=== PATIENT | female | born 1940 | race Caucasian/White ===

== ENCOUNTER 2018-07-14 09:32 | Inpatient (IN) | payer MEDICARE, OTHER, SELFPAY ==
[2018-07-14] VITALS (15 sets, daily range): BP systolic 120–169; BP diastolic 53–71; PULSE 56–67; RESP 16–20; TEMP 36.4–36.9; O2SAT 93–98; BMI 29.8; BMI 28.5
--- NOTE | 2018-07-14 09:46 | EKG12_ITS ---
Test Reason : CP Blood Pressure : / mmHG Vent. Rate : 064 BPM Atrial Rate : 064 BPM P-R Int : 174 ms QRS Dur : 164 ms QT Int : 534 ms P-R-T Axes : 045 -52 087 degrees QTc Int : 550 ms Normal sinus rhythm Left axis deviation Left bundle branch block Abnormal ECG Confirmed by NGHIA KAUFMAN, CAITLYN ([id number]), development editor CHEPE DEMPSEY ([id number]) on 07/16/2018 2:58:48 PM Referred By: DAMARIS Confirmed By:CAITLYN AGRAWAL MD
--- NOTE | 2018-07-14 09:47 | RAD_ITS ---
STUDY: X-RAY CHEST REASON FOR EXAM: Female, 77 years old. Chest pain TECHNIQUE: Frontal and lateral views COMPARISON: February 02, 2012 FINDINGS: The lungs are clear and expanded. There is no demonstrated pleural abnormality. Normal size heart. Normal mediastinum and bandar. Normal visualized pulmonary arteries. Mildly calcified aortic arch and descending thoracic aorta. Mild degenerative changes of the visualized thoracic spine. Normal visualized ribs, clavicles, and shoulders. There is no demonstrated abnormality of the visualized soft tissue structures of the upper abdomen. RAD/Chest PA and Lateral IMPRESSION: Normal x-ray examination of the chest. Electronically Signed: Wilbert Vieyra DO at 12:38 EDT Tel [phone], Service support ,
--- NOTE | 2018-07-14 09:49 | ED.VISSUMM ---
- ER Visit Summary Date of Service: 07/14/18 Chief Complaint: Chest pain History of Present Illness: The patient is a 77 F left-sided chest burning at rest while reading a book. Patient states a.m. felt sweaty, burning sensation left chest into the left neck. States that short of breath and nauseated. Symptoms were subsiding however return, EMS was called. Status post aspirin 324 along with one nitroglycerin. Patient reports symptoms resolved afterwards. History of coronary stents over 10 years ago. States had a initial heart cath with [address] ramirez. States performed at [facility]. Patient reports had a additional cath reporting that 2 stents were occluded. History of atrial fibrillation on warfarin. Occasional dry cough. No fevers. States pain was worse with palpation. There is no injuries. Family history Brother [place] at age of 48 along with another brother at 64. Mother at 64 from [place]. Denies tobacco history. Denies diabetes history. No recent stress test. Unclear on date of her last heart cath. Physical Examination: General: Alert and oriented ?3, no acute distress HEENT: Normocephalic, atraumatic. Moist mucosa membranes Neck: supple, nontender. Cardiovascular: Regular rate and rhythm, no murmurs Respiratory: Normal breath sounds, symmetric, no distress Abdomen: Soft, nontender, nondistended Extremities: Nontender, no edema, pulses intact ?4 Neuro: no focal neurological deficits. Test Results: EKG sinus rate of 64, no ST changes. Left bundle branch block. Troponin 0 0.33. INR 2.3. Potassium 3.2. Creatinine 1.15. Hemoglobin 13.1. Chest x-ray negative. Emergency Department Course and Treatment: Patient symptom-free after nitroglycerin by EMS. Blood pressure stable was placed on Nitropaste. Cardiac workup currently negative. Potassium was 3.2. She given oral replacement. Patient EKG notes a left bundle branch block. She is currently symptom-free, there is noted old EKG for comparison. Patient reports not being told she had a left bundle branch in the past. Her EKG is performed from her cardiology office, today is Monday unable to obtain. INR is therapeutic 2.3. She remained symptom-free on reevaluation. ALEXIA scores of 4 heart score 5. Discussed with hospitalist Dr. Landis for admission. Treatment Plan: [] Disposition: Admission Impression: 1. Chest pain 2. Left bundle branch block 3. Hypokalemia This note was generated with [employer] dictation software. It may contain incorrect words, spelling, and punctuation that were not noted in review of the chart prior to signing ED Disposition - Plan for ED Patient: Disposition: Acute Care Hospital [facility] Chief Complaint: Chest Pain Diagnosis: Chest pain, Left bundle branch block, Hypokalemia Referrals: Freddy Jonas DO [STAFF PHYSICIAN] -
[2018-07-14 10:04] LABS: Absolute Lymphocyte Count 1.28 X10^3/ul (0.83-4.51); Absolute Neutrophil Count 4.6 X10^3/uL (2.0-7.7); Basophil# 0.03 X10^3/uL; Basophil% 0.4 % (0-1); Eosinophil# 0.44 X10^3/uL; Eosinophils% 6.4 % (0-5); Hematocrit 40.3 % (37-47); Hemoglobin 13.1 g/dl (12.0-15.0); Lymphocyte # 1.28 X10^3/ul (4.0); Lymphocyte % 18.6 % (19-41); Mean Corp Hgb Conc 32.5 g/gl (32-36); Mean Corpuscular Hgb 28.9 pg (27.0-32.0); Mean Platelet Vol. 11.6 fl (6.2-12.0); Monocyte# 0.49 X10^3/uL; Monocyte% 7.1 % (0-10); Neutrophil # 4.64 X10^3/uL (2.7-7.7); Neutrophil % 67.4 % (47-70); Platelet Count 206 K/mm3 (150-450); RBC Distribution Width SD 45.1 fl (35.1-43.9); Red Blood Count 4.53 M/mm3 (4.2-5.4); White Blood Count 6.9 K/mm3 (4.4-11.0)
[2018-07-14 10:11] LABS: POSITIVE COUNT NO; POSITIVE DIFFERENTIAL NO; POSITIVE MORPHOLOGY NO
[2018-07-14 10:20] LABS: International Normalized Ratio 2.3
[2018-07-14] MEDS: Nitroglycerin Oint 1 INCH PACKET TRANSDERM. (10:20)
[2018-07-14 10:21] LABS: Partial Thromboplast Time 40.1 Seconds (24.1-36.2)
[2018-07-14 10:22] LABS: Anion Gap 9 (5-15); BUN 17 mg/dL (7-18); BUN/Creat Ratio 14.8 RATIO (10-20); Calcium,Total 8.6 mg/dL (8.5-10.1); Chloride 103 mmol/L (98-107); Creatinine, Serum 1.15 mg/dL (0.55-1.02); EST Glomerular Filtration Rate 49 mL/min (>60); Est Glom Filt Rate - Afr Amer 59 mL/min (>60); Estimated Creatinine Clearance 35.94 ml/min; Glucose 223 mg/dL (74-106); Potassium 3.2 mmol/L (3.5-5.1); Sodium Level 140 mmol/L (136-145)
--- NOTE | 2018-07-14 10:59 | PCM.HP.STD ---
Problem List (1) Chest pain Status: Acute Qualifiers: Chest pain type: unspecified Qualified Code(s): R07.9 - Chest pain, unspecified (2) CAD (coronary artery disease) Status: Chronic Qualifiers: Coronary Disease-Associated Artery/Lesion type: unspecified vessel or lesion type [place] vs. transplanted heart: unspecified whether [place] or transplanted heart Associated angina: angina presence unspecified Qualified Code(s): I25.10 - Atherosclerotic heart disease of [place] coronary artery without angina pectoris (3) Depression Status: Chronic Qualifiers: Depression Type: unspecified Qualified Code(s): F32.9 - Major depressive disorder, single episode, unspecified (4) HLD (hyperlipidemia) Status: Chronic Qualifiers: Hyperlipidemia type: pure hypercholesterolemia Qualified Code(s): E78.00 - Pure hypercholesterolemia, unspecified; E78.0 - Pure hypercholesterolemia (5) Benign essential HTN Status: Chronic (6) PAF (paroxysmal atrial fibrillation) Status: Chronic History of Present Illness Date of Admission: 07/14/18 Chief Complaint: Chest pain The patient is a 77 y/o F w/ PMHx: Anxiety and Depression, HTN, HLD, CAD s/p PCI x 5, PAF following w/ Dr. Esparza previously obtaining her care at [facility] prior to its closure who presents to the [facility] ED on 07/14/18 with onset at ~ 8 am while reading left sided burning chest discomfort w/ radiation into her L shoulder only w/ associated nausea, diaphoresis and dyspnea which lasted < 15 minutes, rated at its worse 5/10 but she notes specifically not really pain, primarily the burning sensation, which resolved w/ EMS administration ASA and NG therapy. Upon ED presentation patient noted being chest pain free. In the ED work-up included T 97.9, heart rate 67, BP 143/68, respiratory rate 18, 96% on room air, CBC with W BC 6.9, heme globin 13.1, platelet 206 without market left shift, coags with INR 2.3, BMP with potassium 3.2, BUN/creatinine 17/1.15, glucose 223, troponin 0.033, EKG w/ SR w/ LBBB with no comparison, CXR with chronic changes. In the ED patient administered K-dur 40 mEq, nitrobid TD 1 inch. Past Medical History Past Medical History (Chronic Problems): Chronic Problems PAF (paroxysmal atrial fibrillation) (Chronic) HLD (hyperlipidemia) (Chronic) Depression (Chronic) CAD (coronary artery disease) (Chronic) Benign essential HTN (Chronic) Allergies No Known Allergies Allergy (Verified 07/14/18 09:48) Home Medications: Ambulatory Orders Medication Instructions Recorded Amiodarone HCl [Pacerone] 200 mg PO DAILY 07/14/18 Atorvastatin Calcium 40 mg PO QHS 07/14/18 Metoprol/Hydrochlorothiazide 1 tab PO DAILY 07/14/18 [Lopressor Hct 100-25 Tablet] Venlafaxine XR [Effexor Xr] 150 mg PO QODAY 07/14/18 Warfarin Sodium 1.5 mg PO MOTUWEFRSA 07/14/18 Warfarin Sodium 3 mg PO SUTH 07/14/18 Surgical History: appendectomy, cholecystectomy, hysterectomy, tonsillectomy Psychiatric History: Anxiety, Depression 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 Sibling History Items: - - Patient notes brother at age 48 with history of heart disease, coronary disease, status post [place], additional brother at age 56 with heart disease, coronary disease status post [place], younger sister with recent [place] in her 60s. Review of Systems Constitutional: Reports: Weakness, Fatigue. Denies: Chills, Fever, Weight Change HEENT: Denies: Head Aches, Sinus Congestion, Sinus Drainage Cardiovascular: Reports: Chest Pain. Denies: Chest Pressure, Chest Tightness, Heaviness, Light Headedness, Orthopnea, Palpitations, Syncope Respiratory: Reports: Shortness of Breath. Denies: Cough, Shortness of breath at rest, Sputum production Gastrointestinal: Reports: Nausea. Denies: Abdominal Pain, Vomiting Genitourinary: Denies: Dysuria Musculoskeletal: Denies: Joint Pain, Joint Tenderness Skin: Denies: Rash, Wounds Neurological: Denies: Numbness, Tingling, Focal weakness Psychiatric: Reports: Anxiety, Depression. Denies: Homicidal Ideations, Suicidal Ideations Hematologic/ Lymphatic: Reports: Easy Bruising, Easy Bleeding VTE Information - Inpt Only VTE Present on Admission: No VTE Mechan Device Prophylaxis: SCD's VTE Pharm Prophylaxis ordered?: No Reason prophylaxis not ordered:: Treatment Not Indicated - On coumadin with therapeutic INR. Patient Problems: Active and Suspected Problems Chest pain (Acute) Subjective: Seated upright in the bed, NAD, denies an recurrent chest burning sensation. Objective: Physical Examination: General: awake, alert, oriented x 3 and cooperative, seated upright in the PCU bed in no apparent distress. Skin: normal color, turgor, no icterus, cyanosis. HEENT: AT/NC, EOMI, PERRLA, MMM, no carotid bruits or JVD noted. Lungs: Mildly diminished BS BL bases, moderate effort, no rales, ronchi or wheezing. Heart: Regular rate and rhythm; no gallop, rub audible. Abdomen: soft, NTTP, ND, normal BS, no HSM. Extremities: no cyanosis, clubbing, or edema. Neurological: patient awake, alert, oriented x 3; cognitive function intact; pupils equally reactive to light and accomodation; cranial nerves II-XII grossly normal, moving all 4 extremities, no focal deficits, strength preserved. Psychiatric: affect appears normal, no acute evidence of depressive or anxiety feelings. - Physical Exam Vital Signs Temp Pulse Resp BP Pulse Ox 97.9 F 60 18 133/54 H 97 07/14/18 09:32 07/14/18 10:20 07/14/18 09:32 07/14/18 10:20 07/14/18 09:49 Oxygen Delivery Method Room Air Weight: 173 lb 11.588 oz Body Mass Index (BMI) 29.8 Laboratory Tests Past 24 Hrs 07/14/18 07/14/18 07/14/18 09:45 09:45 09:45 WBC 6.9 RBC 4.53 Hgb 13.1 Hct 40.3 MCV 89.0 MCH 28.9 MCHC 32.5 RDW 14.0 RDW Differential 45.1 H Plt Count 206 MPV 11.6 Immature Gran % (Auto) 0.100 Neut % (Auto) 67.4 Lymph % (Auto) 18.6 L [place] % (Auto) 7.1 Eos % (Auto) 6.4 H Baso % (Auto) 0.4 Absolute Neuts (auto) 4.6 Absolute Lymphs (auto) 1.28 Total Counted Not Reportable PT 25.0 H INR 2.3 APTT 40.1 H Sodium 140 Potassium 3.2 L Chloride 103 Carbon Dioxide 28.0 Anion Gap 9 BUN 17 Creatinine 1.15 H Estim Creat Clear Calc 35.94 Est GFR (MDRD) Af Amer 59 L Est GFR (MDRD) Non-Af 49 L BUN/Creatinine Ratio 14.8 Glucose 223 H Calcium 8.6 Troponin I 0.033 Assessment/Plan All Active Problems Chest pain (Acute) The patient is a 77 y/o F w/ PMHx: Anxiety and Depression, HTN, HLD, CAD s/p PCI, PAF following w/ Dr. Esparza previously obtaining her care at [facility] prior to its closure who presents to the [facility] ED on 07/14/18 with onset at ~ 8 am while reading left sided burning chest discomfort w/ radiation into her L shoulder only w/ associated nausea, diaphoresis and dyspnea which lasted < 15 minutes, resolved w/ EMS administration ASA and NG therapy. (1) Chest Pain: EKG in ED SR with LBBB without comparison, CXR w/ no acute findings, initial trop normal x1. Will admit to PCU, place on a monitored bed to assure no acute myocardial infarction with serial cardiac enzymes and EKGs. Patient is able to perform exercise and has LBBB with history of PCI with unclear wall motion abnormality at rest thus will proceed with AM nuclear stress test. ASA, NG, morphine. FLP in AM. Mag pending. If enzymes increase would cancel stress testing and request Cardiology evaluation. (2) CAD: s/p PCI history, following w/ Dr. Esparza, previously had care at [facility], maintain on coumadin w/ therapeutic INR, metoprolol, statin as noted. (3) Hypertension: Continue home regimen including metoprolol, hydrochlorothiazide, PRN hydralazine. (4) Hyperlipidemia: Continue home statin regimen. AM FLP. (5) Anxiety and depression: Continue home Effexor regimen. (6) PAF: Maintain on home amiodarone, metoprolol, coumadin w/ INR trending, appropriate upon presentation. (7) Hyperglycemia: Notable BS elevation on BMP, denies DM history, will obtain HgBA1c, nutrition education and teaching. (8) DVT Prophylaxis: SCDs, coumadin w/ INR trending. Code Visit OBSV E&M: 14089 Initial observation care L3
--- NOTE | 2018-07-14 11:00 | NURSING ---
DR ARSH FRASER
--- NOTE | 2018-07-14 11:08 | HP.PCM_ITS ---
Problem List (1) Chest pain Status: Acute Qualifiers: Chest pain type: unspecified Qualified Code(s): R07.9 - Chest pain, unspecified (2) CAD (coronary artery disease) Status: Chronic Qualifiers: Coronary Disease-Associated Artery/Lesion type: unspecified vessel or lesion type [place] vs. transplanted heart: unspecified whether [place] or transplanted heart Associated angina: angina presence unspecified Qualified Code(s): I25.10 - Atherosclerotic heart disease of [place] coronary artery without angina pectoris (3) Depression Status: Chronic Qualifiers: Depression Type: unspecified Qualified Code(s): F32.9 - Major depressive disorder, single episode, unspecified (4) HLD (hyperlipidemia) Status: Chronic Qualifiers: Hyperlipidemia type: pure hypercholesterolemia Qualified Code(s): E78.00 - Pure hypercholesterolemia, unspecified; E78.0 - Pure hypercholesterolemia (5) Benign essential HTN Status: Chronic (6) PAF (paroxysmal atrial fibrillation) Status: Chronic History of Present Illness Date of Admission: 07/14/18 Chief Complaint: Chest pain The patient is a 77 y/o F w/ PMHx: Anxiety and Depression, HTN, HLD, CAD s/p PCI x 5, PAF following w/ Dr. Esparza previously obtaining her care at [facility] prior to its closure who presents to the [facility] ED on 07/14/18 with onset at ~ 8 am while reading left sided burning chest discomfort w/ radiation into her L shoulder only w/ associated nausea, diaphoresis and dyspnea which lasted < 15 minutes, rated at its worse 5/10 but she notes specifically not really pain, primarily the burning sensation, which resolved w/ EMS administration ASA and NG therapy. Upon ED presentation patient noted being chest pain free. In the ED work-up included T 97.9, heart rate 67, BP 143/68, respiratory rate 18, 96% on room air, CBC with W BC 6.9, heme globin 13.1, platelet 206 without market left shift, coags with INR 2.3, BMP with potassium 3.2, BUN/creatinine 17/1.15, glucose 223, troponin 0.033, EKG w/ SR w/ LBBB with no comparison, CXR with chronic changes. In the ED patient administered K-dur 40 mEq, nitrobid TD 1 inch. Past Medical History Past Medical History (Chronic Problems): Chronic Problems PAF (paroxysmal atrial fibrillation) (Chronic) HLD (hyperlipidemia) (Chronic) Depression (Chronic) CAD (coronary artery disease) (Chronic) Benign essential HTN (Chronic) Allergies No Known Allergies Allergy (Verified 07/14/18 09:48) Home Medications: Ambulatory Orders Medication Instructions Recorded Amiodarone HCl [Pacerone] 200 mg PO DAILY 07/14/18 Atorvastatin Calcium 40 mg PO QHS 07/14/18 Metoprol/Hydrochlorothiazide 1 tab PO DAILY 07/14/18 [Lopressor Hct 100-25 Tablet] Venlafaxine XR [Effexor Xr] 150 mg PO QODAY 07/14/18 Warfarin Sodium 1.5 mg PO MOTUWEFRSA 07/14/18 Warfarin Sodium 3 mg PO SUTH 07/14/18 Surgical History: appendectomy, cholecystectomy, hysterectomy, tonsillectomy Psychiatric History: Anxiety, Depression 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 Sibling History Items: - - Patient notes brother at age 48 with history of heart disease, coronary disease, status post [place], additional brother at age 56 with heart disease, coronary disease status post [place], younger sister with recent [place] in her 60s. Review of Systems Constitutional: Reports: Weakness, Fatigue. Denies: Chills, Fever, Weight Change HEENT: Denies: Head Aches, Sinus Congestion, Sinus Drainage Cardiovascular: Reports: Chest Pain. Denies: Chest Pressure, Chest Tightness, Heaviness, Light Headedness, Orthopnea, Palpitations, Syncope Respiratory: Reports: Shortness of Breath. Denies: Cough, Shortness of breath at rest, Sputum production Gastrointestinal: Reports: Nausea. Denies: Abdominal Pain, Vomiting Genitourinary: Denies: Dysuria Musculoskeletal: Denies: Joint Pain, Joint Tenderness Skin: Denies: Rash, Wounds Neurological: Denies: Numbness, Tingling, Focal weakness Psychiatric: Reports: Anxiety, Depression. Denies: Homicidal Ideations, Suicidal Ideations Hematologic/ Lymphatic: Reports: Easy Bruising, Easy Bleeding VTE Information - Inpt Only VTE Present on Admission: No VTE Mechan Device Prophylaxis: SCD's VTE Pharm Prophylaxis ordered?: No Reason prophylaxis not ordered:: Treatment Not Indicated - On coumadin with therapeutic INR. Patient Problems: Active and Suspected Problems Chest pain (Acute) Subjective: Seated upright in the bed, NAD, denies an recurrent chest burning sensation. Objective: Physical Examination: General: awake, alert, oriented x 3 and cooperative, seated upright in the PCU bed in no apparent distress. Skin: normal color, turgor, no icterus, cyanosis. HEENT: AT/NC, EOMI, PERRLA, MMM, no carotid bruits or JVD noted. Lungs: Mildly diminished BS BL bases, moderate effort, no rales, ronchi or wheezing. Heart: Regular rate and rhythm; no gallop, rub audible. Abdomen: soft, NTTP, ND, normal BS, no HSM. Extremities: no cyanosis, clubbing, or edema. Neurological: patient awake, alert, oriented x 3; cognitive function intact; pupils equally reactive to light and accomodation; cranial nerves II-XII grossly normal, moving all 4 extremities, no focal deficits, strength preserved. Psychiatric: affect appears normal, no acute evidence of depressive or anxiety feelings. - Physical Exam Vital Signs Temp Pulse Resp BP Pulse Ox 97.9 F 60 18 133/54 H 97 07/14/18 09:32 07/14/18 10:20 07/14/18 09:32 07/14/18 10:20 07/14/18 09:49 Oxygen Delivery Method Room Air Weight: 173 lb 11.588 oz Body Mass Index (BMI) 29.8 Laboratory Tests Past 24 Hrs 07/14/18 07/14/18 07/14/18 09:45 09:45 09:45 WBC 6.9 RBC 4.53 Hgb 13.1 Hct 40.3 MCV 89.0 MCH 28.9 MCHC 32.5 RDW 14.0 RDW Differential 45.1 H Plt Count 206 MPV 11.6 Immature Gran % (Auto) 0.100 Neut % (Auto) 67.4 Lymph % (Auto) 18.6 L [place] % (Auto) 7.1 Eos % (Auto) 6.4 H Baso % (Auto) 0.4 Absolute Neuts (auto) 4.6 Absolute Lymphs (auto) 1.28 Total Counted Not Reportable PT 25.0 H INR 2.3 APTT 40.1 H Sodium 140 Potassium 3.2 L Chloride 103 Carbon Dioxide 28.0 Anion Gap 9 BUN 17 Creatinine 1.15 H Estim Creat Clear Calc 35.94 Est GFR (MDRD) Af Amer 59 L Est GFR (MDRD) Non-Af 49 L BUN/Creatinine Ratio 14.8 Glucose 223 H Calcium 8.6 Troponin I 0.033 Assessment/Plan All Active Problems Chest pain (Acute) The patient is a 77 y/o F w/ PMHx: Anxiety and Depression, HTN, HLD, CAD s/p PCI, PAF following w/ Dr. Esparza previously obtaining her care at [facility] prior to its closure who presents to the [facility] ED on 07/14/18 with onset at ~ 8 am while reading left sided burning chest discomfort w/ radiation into her L shoulder only w/ associated nausea, diaphoresis and dyspnea which lasted < 15 minutes, resolved w/ EMS administration ASA and NG therapy. (1) Chest Pain: EKG in ED SR with LBBB without comparison, CXR w/ no acute findings, initial trop normal x1. Will admit to PCU, place on a monitored bed to assure no acute myocardial infarction with serial cardiac enzymes and EKGs. Patient is able to perform exercise and has LBBB with history of PCI with unclear wall motion abnormality at rest thus will proceed with AM nuclear stress test. ASA, NG, morphine. FLP in AM. Mag pending. If enzymes increase would cancel stress testing and request Cardiology evaluation. (2) CAD: s/p PCI history, following w/ Dr. Esparza, previously had care at [facility], maintain on coumadin w/ therapeutic INR, metoprolol, statin as noted. (3) Hypertension: Continue home regimen including metoprolol, hydrochlorothiazide, PRN hydralazine. (4) Hyperlipidemia: Continue home statin regimen. AM FLP. (5) Anxiety and depression: Continue home Effexor regimen. (6) PAF: Maintain on home amiodarone, metoprolol, coumadin w/ INR trending, appropriate upon presentation. (7) Hyperglycemia: Notable BS elevation on BMP, denies DM history, will obtain HgBA1c, nutrition education and teaching. (8) DVT Prophylaxis: SCDs, coumadin w/ INR trending. Code Visit OBSV E&M: 56524 Initial observation care L3
--- NOTE | 2018-07-14 11:10 | NURSING ---
127 WHITE CP, LBBB, HYPOKALEMIA
--- NOTE | 2018-07-14 11:36 | EKG12_ITS ---
Test Reason : CP ADMISSION Blood Pressure : / mmHG Vent. Rate : 056 BPM Atrial Rate : 056 BPM P-R Int : 176 ms QRS Dur : 156 ms QT Int : 496 ms P-R-T Axes : 043 -52 104 degrees QTc Int : 478 ms Sinus bradycardia Left axis deviation Left bundle branch block Abnormal ECG Confirmed by NGHIA KAUFMAN, CAITLYN ([id number]), video editor CHEPE DEMPSEY ([id number]) on 07/18/2018 3:39:13 PM Referred By: DR CABAN Confirmed By:CAITLYN AGRAWAL MD
[2018-07-14 11:55] LABS: Magnesium 1.8 mg/dL (1.6-2.6)
[2018-07-14 12:53] LABS: Hemoglobin A1c 7.2 % (4.2-6.3)
--- NOTE | 2018-07-14 13:13 | ECHOCS_ITS ---
Reason For Study: CAD/ASHD Procedure This was a 2D Doppler, Color Flow transthoracic echocardiogram. Exam performed portable in patient room. Left Ventricle Normal LV size. Mild concentric left ventricular hypertrophy. Left ventricular systolic function is normal. The estimated ejection fraction is 55 %. No regional wall motion abnormalities noted. Right Ventricle Normal RV size. Normal systolic function. Atria Normal left atrium. Normal right atrium. Mitral Valve There is mild mitral annular calcification. Mild focal mitral valve calcification. Mild (1+) eccentric mitral valve insufficiency. Tricuspid Valve Normal tricuspid valve. Mild (1+) tricuspid valve insufficiency. Pulmonary artery systolic pressure is 35 mmHg. Aortic Valve Trisinus/trileaflet aortic valve. Mild (1+) eccentric aortic valve insufficiency. Pulmonic Valve Normal pulmonic valve. Great Vessels Normal aortic root. The pulmonary artery is normal size. Normal inferior vena cava. Pericardium/Pleural No pericardial effusion. Medication Definity0.3ml given slow IV push to enhance endocardial definition. MMode/2D Measurements & Calculations LVIDd: 4.7 cm IVSd: 1.2 cm Ao root diam: 3.1 cm LVIDs: 3.2 cm LVPWd: 1.2 cm RVDd: 3.6 cm FS: 31.3 % LAV(MOD-bp): 46.0 ml LVAd ap4: 21.0 cm2 SV(MOD-sp4): 35.5 ml LAV(MOD-bp) Indexed: 25.4 ml/m2 EDV(MOD-sp4): 51.5 ml LAV(MOD-sp2): 48.7 ml EDV(sp4-el): 52.9 ml LAV(MOD-sp4): 41.6 ml LVAs ap4: 10.6 cm2 ESV(MOD-sp4): 16.0 ml ESV(sp4-el): 16.0 ml EF(MOD-sp4): 68.9 % EF(sp4-el): 69.7 % SV(sp4-el): 36.8 ml LA A4 area: 16.6 cm2 RA A4 area: 10.0 cm2 Doppler Measurements & Calculations MV E max juancho: 84.8 cm/sec Lat Peak E' Juancho: 4.6 cm/sec Med Peak E' [place]o: 4.3 cm/sec MV A max juancho: 100.5 cm/sec E/E' lat: 18.2 E/E' med: 19.9 MV E/A: 0.84 Ao V2 max: 160.0 cm/sec AI max juancho: 403.3 cm/sec LV V1 max: 107.1 cm/sec Ao max P.2 mmHg AI max P.0 mmHg LV V1 max P.6 mmHg Ao V2 mean: 104.9 cm/sec AI dec slope: 165.1 cm/sec2 Ao mean P.0 mmHg AI P1/2t: 715.2 msec Ao V2 VTI: 39.9 cm PA V2 max: 86.5 cm/sec TR max juancho: 279.8 cm/sec TR max P.3 mmHg Interpretation Summary Normal LV size. Mild concentric left ventricular hypertrophy. Left ventricular systolic function is normal. The estimated ejection fraction is 55 %. Mild (1+) tricuspid valve insufficiency. Pulmonary artery systolic pressure is 35 mmHg. Mild (1+) eccentric aortic valve insufficiency. Mild focal mitral valve calcification. Ordering Physician: Angie Landis Referring Physician: Sanjeev Alexandra Performed By: Cailin Garcia, ELIZABETH, RVT
[2018-07-14] MEDS: Amiodarone 200 MG Tablet PO (14:55)
[2018-07-14] MEDS: Metoprolol Tartrate 100 MG Tablet PO (14:55)
[2018-07-14] MEDS: hydroCHLOROthiazide 25 MG Tablet PO (14:56)
--- NOTE | 2018-07-14 18:19 | PCM.CONS.C ---
Reason for Consult Date of Consultation: 07/14/18 Reason for Consultation: Chest pain. History of Present Illness: The patient is a 77 year old F with a previous history of hypertension, anxiety disorder, paroxysmal atrial fibrillation, and coronary artery disease status post previous stenting x5. She presented to the emergency room with chest burning with minimal radiation. She says that this was similar to the discomfort that she had had previously. She presented to the emergency room and was given aspirin and nitroglycerin prior to presentation with improvement in the chest discomfort. In the emergency room electrocardiogram done demonstrated left bundle branch block with no acute changes. Cardiac enzymes were minimally abnormal. Since being admitted her cardiac enzymes have risen further. She denies any chest pain or shortness breath or paroxysmal nocturnal dyspnea at this time. [] Past Medical History Allergies/Adverse Reactions: Allergies No Known Allergies Allergy (Verified 07/14/18 09:48) Home Medications: Ambulatory Orders Medication Instructions Recorded Amiodarone HCl [Pacerone] 200 mg PO DAILY 07/14/18 Atorvastatin Calcium 40 mg PO QHS 07/14/18 Metoprol/Hydrochlorothiazide 1 tab PO DAILY 07/14/18 [Lopressor Hct 100-25 Tablet] Venlafaxine XR [Effexor Xr] 150 mg PO QODAY 07/14/18 Warfarin Sodium 1.5 mg PO MOTUWEFRSA 07/14/18 Warfarin Sodium 3 mg PO SUTH 07/14/18 Past Medical History (Chronic Problems): Chronic Problems PAF (paroxysmal atrial fibrillation) (Chronic) HLD (hyperlipidemia) (Chronic) Depression (Chronic) CAD (coronary artery disease) (Chronic) Benign essential HTN (Chronic) Surgical History: appendectomy, cholecystectomy, hysterectomy, tonsillectomy Psychiatric History: Anxiety, Depression [employer] History: No pertinent [employer] history - *Family History Paternal History Items: No pertinent history Maternal History Items: - - Patient notes a maternal family history of heart disease with aneurysm, age 64. Sibling History Items: - - Patient notes brother at age 48 with history of heart disease, coronary disease, status post OR, additional brother at age 56 with heart disease, coronary disease status post OR, younger sister with recent OR in her 60s. Lives: Spouse/ Significant Other Smoking Status: Never smoker Tobacco Use: Non-smoker Alcohol: None Drugs: None Review of Systems - Review of Systems General: Denies: Fever, Night Sweats, Fatigue Cardiovascular: Reports: Chest Discomfort at Rest, Chest Discomfort with Exertion. Denies: Chest Discomfort, Shortness of Breath, Orthopnea, PND, Peripheral Edema, Palpitations, Lightheadedness, Dizziness, Near Syncope, Syncope Respiratory: Denies: Cough, Sputum Production, Hemoptysis Gastrointestinal: Denies: Hematemesis, Hematochezia, Melena Genitourinary: Denies: Dysuria, Hematuria Skin: Denies: Rash Subjectve: Pleasant lady in no apparent distress Objective: Vital Signs Temp Pulse Resp BP Pulse Ox 97.6 F L 60 16 169/70 H 97 07/14/18 14:43 07/14/18 15:48 07/14/18 14:43 07/14/18 14:55 07/14/18 14:43 Oxygen Flow Rate (L/min) 2 Oxygen Delivery Method Nasal Cannula Weight: 166 lb 3.657 oz Body Mass Index (BMI) 28.5 Intake and Output for Last 24 Hours 07/12/18 07/13/18 07/14/18 23:59 23:59 23:59 Intake Total 450 / 450 Balance 450 / 450 General: Awake, Alert, Oriented x 3 HEENT: PERRL, EOMI, Sclera Non Icteric Neck: Supple, Good ROM, No Lymph Node Enlargement Lungs: Clear to auscultation Cardiovascular: Regular Rhythm, Normal S1, Normal S2, No Murmurs, No Rubs, No Gallops Vascular: No Carotid Bruits, Normal Femoral Pulses, Normal Radial Pulses, Normal Dorsalis Pedal Pulse, Normal Posterior Tibial Pulses Abdomen: Bowel Sounds Present, Soft, Non Tender, No HSM, No Organomegaly Extremities: No Cyanosis, No Clubbing, No edema Neurological: No Focal Motor or Sensory Deficit 07/14/18 09:45: WBC 6.9, RBC 4.53, Hgb 13.1, Hct 40.3, MCV 89.0, MCH 28.9, MCHC 32.5, RDW 14.0, RDW Differential 45.1 H, Plt Count 206, MPV 11.6, Immature Gran % (Auto) 0.100, Neut % (Auto) 67.4, Lymph % (Auto) 18.6 L, [place] % (Auto) 7.1, Eos % (Auto) 6.4 H, Baso % (Auto) 0.4, Absolute Neuts (auto) 4.6, Total Counted Not Reportable 07/14/18 09:45: Sodium 140, Potassium 3.2 L, Chloride 103, Carbon Dioxide 28.0, Anion Gap 9, BUN 17, Creatinine 1.15 H, Est GFR (MDRD) Af Amer 59 L, Est GFR (MDRD) Non-Af 49 L, BUN/Creatinine Ratio 14.8, Glucose 223 H, Calcium 8.6, Troponin I 0.033 07/14/18 09:45: PT 25.0 H, INR 2.3, APTT 40.1 H 07/14/18 09:45: Magnesium 1.8 07/14/18 09:45: Hemoglobin A1c 7.2 H 07/14/18 12:20: Troponin I 0.127 H 07/14/18 15:41: Troponin I 0.172 H Rhythm: EKG: Normal sinus rhythm with a left bundle branch block Assessment/Plan 1. Chest pain in a patient with known coronary artery disease. She presents with chest discomfort with a history of known coronary artery disease and previous angioplasty and stenting. She has an electric cardiogram which demonstrates a left bundle branch block. My recommendation is to continue to cycle her cardiac enzymes. With her previous history it may be prudent to proceed directly to a cardiac catheterization rather than stress testing especially with a left bundle branch block. I will discuss this with her further. The meantime she should continue on the aspirin, high intensity statin, beta-itzel. Would hold anticoagulation for now. 2. Paroxysmal atrial fibrillation Patient is maintaining sinus rhythm with a left bundle branch block. In lieu of possible cardiac catheterization would hold anticoagulation in the meantime. Continue antiarrhythmic therapy with amiodarone. 3. Hypertension Patient appears to be well controlled with respect to the hypertension. Will continue same medications. 4. Hyperlipidemia Will recommend continuing high intensity statin. Thank you for allowing me to participate in the care of your patient. Please don't hesitate to call if any issues arise
--- NOTE | 2018-07-14 18:24 | CON.PCM_ITS ---
Reason for Consult Date of Consultation: 07/14/18 Reason for Consultation: Chest pain. History of Present Illness: The patient is a 77 year old F with a previous history of hypertension, anxiety disorder, paroxysmal atrial fibrillation, and coronary artery disease status post previous stenting x5. She presented to the emergency room with chest burning with minimal radiation. She says that this was similar to the discomfort that she had had previously. She presented to the emergency room and was given aspirin and nitroglycerin prior to presentation with improvement in the chest discomfort. In the emergency room electrocardiogram done demonstrated left bundle branch block with no acute changes. Cardiac enzymes were minimally abnormal. Since being admitted her cardiac enzymes have risen further. She denies any chest pain or shortness breath or paroxysmal nocturnal dyspnea at this time. [] Past Medical History Allergies/Adverse Reactions: Allergies No Known Allergies Allergy (Verified 07/14/18 09:48) Home Medications: Ambulatory Orders Medication Instructions Recorded Amiodarone HCl [Pacerone] 200 mg PO DAILY 07/14/18 Atorvastatin Calcium 40 mg PO QHS 07/14/18 Metoprol/Hydrochlorothiazide 1 tab PO DAILY 07/14/18 [Lopressor Hct 100-25 Tablet] Venlafaxine XR [Effexor Xr] 150 mg PO QODAY 07/14/18 Warfarin Sodium 1.5 mg PO MOTUWEFRSA 07/14/18 Warfarin Sodium 3 mg PO SUTH 07/14/18 Past Medical History (Chronic Problems): Chronic Problems PAF (paroxysmal atrial fibrillation) (Chronic) HLD (hyperlipidemia) (Chronic) Depression (Chronic) CAD (coronary artery disease) (Chronic) Benign essential HTN (Chronic) Surgical History: appendectomy, cholecystectomy, hysterectomy, tonsillectomy Psychiatric History: Anxiety, Depression [employer] History: No pertinent [employer] history - *Family History Paternal History Items: No pertinent history Maternal History Items: - - Patient notes a maternal family history of heart disease with aneurysm, age 64. Sibling History Items: - - Patient notes brother at age 48 with history of heart disease, coronary disease, status post MA, additional brother at age 56 with heart disease, coronary disease status post MA, younger sister with recent MA in her 60s. Lives: Spouse/ Significant Other Smoking Status: Never smoker Tobacco Use: Non-smoker Alcohol: None Drugs: None Review of Systems - Review of Systems General: Denies: Fever, Night Sweats, Fatigue Cardiovascular: Reports: Chest Discomfort at Rest, Chest Discomfort with Exertion. Denies: Chest Discomfort, Shortness of Breath, Orthopnea, PND, Peripheral Edema, Palpitations, Lightheadedness, Dizziness, Near Syncope, Syncope Respiratory: Denies: Cough, Sputum Production, Hemoptysis Gastrointestinal: Denies: Hematemesis, Hematochezia, Melena Genitourinary: Denies: Dysuria, Hematuria Skin: Denies: Rash Subjectve: Pleasant lady in no apparent distress Objective: Vital Signs Temp Pulse Resp BP Pulse Ox 97.6 F L 60 16 169/70 H 97 07/14/18 14:43 07/14/18 15:48 07/14/18 14:43 07/14/18 14:55 07/14/18 14:43 Oxygen Flow Rate (L/min) 2 Oxygen Delivery Method Nasal Cannula Weight: 166 lb 3.657 oz Body Mass Index (BMI) 28.5 Intake and Output for Last 24 Hours 07/12/18 07/13/18 07/14/18 23:59 23:59 23:59 Intake Total 450 / 450 Balance 450 / 450 General: Awake, Alert, Oriented x 3 HEENT: PERRL, EOMI, Sclera Non Icteric Neck: Supple, Good ROM, No Lymph Node Enlargement Lungs: Clear to auscultation Cardiovascular: Regular Rhythm, Normal S1, Normal S2, No Murmurs, No Rubs, No Gallops Vascular: No Carotid Bruits, Normal Femoral Pulses, Normal Radial Pulses, Normal Dorsalis Pedal Pulse, Normal Posterior Tibial Pulses Abdomen: Bowel Sounds Present, Soft, Non Tender, No HSM, No Organomegaly Extremities: No Cyanosis, No Clubbing, No edema Neurological: No Focal Motor or Sensory Deficit 07/14/18 09:45: WBC 6.9, RBC 4.53, Hgb 13.1, Hct 40.3, MCV 89.0, MCH 28.9, MCHC 32.5, RDW 14.0, RDW Differential 45.1 H, Plt Count 206, MPV 11.6, Immature Gran % (Auto) 0.100, Neut % (Auto) 67.4, Lymph % (Auto) 18.6 L, [place] % (Auto) 7.1, Eos % (Auto) 6.4 H, Baso % (Auto) 0.4, Absolute Neuts (auto) 4.6, Total Counted Not Reportable 07/14/18 09:45: Sodium 140, Potassium 3.2 L, Chloride 103, Carbon Dioxide 28.0, Anion Gap 9, BUN 17, Creatinine 1.15 H, Est GFR (MDRD) Af Amer 59 L, Est GFR (MDRD) Non-Af 49 L, BUN/Creatinine Ratio 14.8, Glucose 223 H, Calcium 8.6, Troponin I 0.033 07/14/18 09:45: PT 25.0 H, INR 2.3, APTT 40.1 H 07/14/18 09:45: Magnesium 1.8 07/14/18 09:45: Hemoglobin A1c 7.2 H 07/14/18 12:20: Troponin I 0.127 H 07/14/18 15:41: Troponin I 0.172 H Rhythm: EKG: Normal sinus rhythm with a left bundle branch block Assessment/Plan 1. Chest pain in a patient with known coronary artery disease. * She presents with chest discomfort with a history of known coronary artery disease and previous angioplasty and stenting. She has an electric cardiogram which demonstrates a left bundle branch block. * My recommendation is to continue to cycle her cardiac enzymes. With her previous history it may be prudent to proceed directly to a cardiac catheterization rather than stress testing especially with a left bundle branch block. I will discuss this with her further. * The meantime she should continue on the aspirin, high intensity statin, beta- itzel. * Would hold anticoagulation for now. * 2. Paroxysmal atrial fibrillation * Patient is maintaining sinus rhythm with a left bundle branch block. * In lieu of possible cardiac catheterization would hold anticoagulation in the meantime. * Continue antiarrhythmic therapy with amiodarone. * 3. Hypertension * Patient appears to be well controlled with respect to the hypertension. * Will continue same medications. * 4. Hyperlipidemia * Will recommend continuing high intensity statin. * * Thank you for allowing me to participate in the care of your patient. Please don't hesitate to call if any issues arise
[2018-07-14] MEDS: Atorvastatin Calcium 20 MG Tablet 40 MG PO (21:10)
[2018-07-14] MEDS: Acetaminophen 325 MG Tablet 650 MG PO (21:10)
[2018-07-15] VITALS (14 sets, daily range): BP systolic 130–149; BP diastolic 53–73; PULSE 53–61; RESP 14–18; TEMP 36.5–37.1; O2SAT 93–96
--- NOTE | 2018-07-15 05:55 | EKG12_ITS ---
Test Reason : AM Blood Pressure : / mmHG Vent. Rate : 057 BPM Atrial Rate : 057 BPM P-R Int : 186 ms QRS Dur : 160 ms QT Int : 614 ms P-R-T Axes : 056 -54 131 degrees QTc Int : 597 ms Sinus bradycardia Left axis deviation Left bundle branch block Abnormal ECG When compared with ECG of 14-JUL-2018 11:52, MANUAL COMPARISON REQUIRED, DATA IS UNCONFIRMED Confirmed by NGHIA KAUFMAN, CAITLYN ([id number]), telegraph editor CHEPE DEMPSEY ([id number]) on 07/18/2018 3:37:40 PM Referred By: ARSH Confirmed By:CAITLYN AGRAWAL MD
[2018-07-15 06:47] LABS: Hematocrit 40.1 % (37-47); Hemoglobin 13.1 g/dl (12.0-15.0); Mean Corp Hgb Conc 32.7 g/gl (32-36); Mean Corpuscular Hgb 29.2 pg (27.0-32.0); Mean Corpuscular Volume 89.3 fL (81-99); Mean Platelet Vol. 12.4 fl (6.2-12.0); Platelet Count 235 K/mm3 (150-450); RBC Distribution Width SD 45.3 fl (35.1-43.9); Red Blood Count 4.49 M/mm3 (4.2-5.4); White Blood Count 9.8 K/mm3 (4.4-11.0)
[2018-07-15 06:54] LABS: International Normalized Ratio 2.1; Prothrombin Time (Protime)PT. 23.9 SECONDS (11.7-14.9)
[2018-07-15 06:58] LABS: Scan Indicated on CBC? Y/N NO
[2018-07-15 07:07] LABS: ALB/GLOB Ratio 0.9 RATIO (0.9-2.4); AST(SGOT) 34 U/L (15-37); Alanine Aminotransfer ALT/SGPT 48 U/L (13-56); Albumin, Serum 3.3 g/dL (3.2-5.0); Alkaline Phosphatase 93 U/L (45-117); Anion Gap 9 (5-15); BUN 16 mg/dL (7-18); BUN/Creat Ratio 14.7 RATIO (10-20); Calcium,Total 8.5 mg/dL (8.5-10.1); Chloride 104 mmol/L (98-107); Cholesterol 167 mg/dL (200); Creatinine, Serum 1.09 mg/dL (0.55-1.02); EST Glomerular Filtration Rate 52 mL/min (>60); Est Glom Filt Rate - Afr Amer 63 mL/min (>60); Estimated Creatinine Clearance 37.92 ml/min; Globulin 3.5 g/dL (2.2-4.2); Glucose 127 mg/dL (74-106); High Density Lipoprotein 77 mg/dL; Potassium 3.6 mmol/L (3.5-5.1); Protein, Total 6.8 g/dL (6.4-8.2); Sodium Level 141 mmol/L (136-145); Triglycerides 208 mg/dL; Very Low Density Lipoprotein 42 mg/dL (5-40)
--- NOTE | 2018-07-15 08:27 | PN.CARD_ITS ---
Subjectve: Patient seen and evaluated. Appears to be doing well. No chest pain overnight. Objective: Vital Signs Temp Pulse Resp BP Pulse Ox 98.7 F 58 L 14 149/57 H 93 07/15/18 03:05 07/15/18 07:59 07/15/18 03:05 07/15/18 03:05 07/15/18 07:15 Oxygen Flow Rate (L/min) 2 Oxygen Delivery Method Room Air Weight: 166 lb 3.657 oz Body Mass Index (BMI) 28.5 Intake and Output for Last 24 Hours 07/13/18 07/14/18 07/15/18 23:59 23:59 23:59 Intake Total 550 / 550 Balance 550 / 550 General: Awake, Alert, Oriented x 3 HEENT: PERRL, EOMI, Sclera Non Icteric Neck: Supple, Good ROM, No Lymph Node Enlargement Lungs: Clear to auscultation Cardiovascular: Regular Rhythm, Normal S1, Normal S2, No Murmurs, No Rubs, No Gallops Vascular: No Carotid Bruits, Normal Femoral Pulses, Normal Radial Pulses, Normal Dorsalis Pedal Pulse, Normal Posterior Tibial Pulses Abdomen: Bowel Sounds Present, Soft, Non Tender, No HSM, No Organomegaly Extremities: No Cyanosis, No Clubbing, No edema Neurological: No Focal Motor or Sensory Deficit 07/14/18 09:45: WBC 6.9, RBC 4.53, Hgb 13.1, Hct 40.3, MCV 89.0, MCH 28.9, MCHC 32.5, RDW 14.0, RDW Differential 45.1 H, Plt Count 206, MPV 11.6, Immature Gran % (Auto) 0.100, Neut % (Auto) 67.4, Lymph % (Auto) 18.6 L, [place] % (Auto) 7.1, Eos % (Auto) 6.4 H, Baso % (Auto) 0.4, Absolute Neuts (auto) 4.6, Total Counted Not Reportable 07/14/18 09:45: Sodium 140, Potassium 3.2 L, Chloride 103, Carbon Dioxide 28.0, Anion Gap 9, BUN 17, Creatinine 1.15 H, Est GFR (MDRD) Af Amer 59 L, Est GFR (MDRD) Non-Af 49 L, BUN/Creatinine Ratio 14.8, Glucose 223 H, Calcium 8.6, Troponin I 0.033 07/14/18 09:45: PT 25.0 H, INR 2.3, APTT 40.1 H 07/14/18 09:45: Magnesium 1.8 07/14/18 09:45: Hemoglobin A1c 7.2 H 07/14/18 12:20: Troponin I 0.127 H 07/14/18 15:41: Troponin I 0.172 H 07/15/18 05:57: WBC 9.8, RBC 4.49, Hgb 13.1, Hct 40.1, MCV 89.3, MCH 29.2, MCHC 32.7, RDW 14.0, RDW Differential 45.3 H, Plt Count 235, MPV 12.4 H 07/15/18 05:57: Sodium 141, Potassium 3.6, Chloride 104, Carbon Dioxide 28.0, Anion Gap 9, BUN 16, Creatinine 1.09 H, Est GFR (MDRD) Af Amer 63, Est GFR (MDRD) Non-Af 52 L, BUN/Creatinine Ratio 14.7, Glucose 127 H, Calcium 8.5, Total Bilirubin 0.40, Triglycerides 208 H, Cholesterol 167, LDL Cholesterol 48, VLDL Cholesterol 42 H, HDL Cholesterol 77 07/15/18 05:57: PT 23.9 H, INR 2.1 Rhythm: EKG: ECHO: Stress Test: Cardiac Cath: PCI: CT Surgery: Holter monitor: EPS: PPM: CXR: Chest CT Scan: Medical Necessity - Tobacco Use Smoking Status: Never smoker Tobacco Use: Non-smoker Assessment/Plan 1. Chest pain in a patient with known coronary artery disease. * She presents with chest discomfort with a history of known coronary artery disease and previous angioplasty and stenting. She has an electric cardiogram which demonstrates a left bundle branch block. * My recommendation is to continue to cycle her cardiac enzymes. With her previous history it may be prudent to proceed directly to a cardiac catheterization rather than stress testing especially with a left bundle branch block. This was discussed with her and this is her preferred approach. * The meantime she should continue on the aspirin, high intensity statin, beta-b locker. * Would hold anticoagulation for now. * 2. Paroxysmal atrial fibrillation * Patient is maintaining sinus rhythm with a left bundle branch block. * In lieu of possible cardiac catheterization would hold anticoagulation in the meantime. * Continue antiarrhythmic therapy with amiodarone. * 3. Hypertension * Patient appears to be well controlled with respect to the hypertension. * Will continue same medications. * 4. Hyperlipidemia * Will recommend continuing high intensity statin. * * Thank you for allowing me to participate in the care of your patient. Please don't hesitate to call if any issues arise
--- NOTE | 2018-07-15 08:31 | PCM.PN.HOSP ---
Patient Problems: Active and Suspected Problems Chest pain (Acute) Subjective: Patient with no acute events overnight per self and per nursing report. She states she continues to feel well and has not had no recurrent chest discomfort or burning sensation. Reviewed current status of workup and mildly elevated cardiac enzymes with plan for cardiac catheterization on Monday. She notes Dr. Louis has discussed her current status with her and she understands plan to continue to hold Coumadin for planned cardiac catheterization. Patient denies fevers, chills, nausea, emesis, abdominal pain, chest pain or dyspnea. Objective: Physical Examination: General: awake, alert, oriented x 3 and cooperative, seated upright in bed in no apparent distress. Skin: normal color, turgor, no icterus, cyanosis. HEENT: AT/NC, EOMI, PERRLA, MMM. Lungs: Mildly diminished BS BL bases, moderate effort, no rales, ronchi or wheezing. Heart: Regular rate and rhythm; no gallop, rub audible. Abdomen: soft, NTTP, ND, normal BS. Extremities: no cyanosis, clubbing, or edema. Neurological: patient awake, alert, oriented x 3; cognitive function intact; pupils equally reactive to light and accomodation; cranial nerves II-XII grossly normal, moving all 4 extremities, no focal deficits, strength preserved. Psychiatric: affect appears normal, no acute evidence of depressive or anxiety feelings. Vitals/I&O's: Vital Signs Temp Pulse Resp BP Pulse Ox 98.7 F 58 L 14 149/57 H 93 07/15/18 03:05 07/15/18 07:59 07/15/18 03:05 07/15/18 03:05 07/15/18 07:15 Oxygen Flow Rate (L/min) 2 Oxygen Delivery Method Room Air Weight: 166 lb 3.657 oz Body Mass Index (BMI) 28.5 Intake and Output for Last 24 Hours 07/13/18 07/14/18 07/15/18 23:59 23:59 23:59 Intake Total 550 / 550 Balance 550 / 550 Laboratory Results 07/14/18 09:45: WBC 6.9, RBC 4.53, Hgb 13.1, Hct 40.3, MCV 89.0, MCH 28.9, MCHC 32.5, RDW 14.0, RDW Differential 45.1 H, Plt Count 206, MPV 11.6, Immature Gran % (Auto) 0.100, Neut % (Auto) 67.4, Lymph % (Auto) 18.6 L, [place] % (Auto) 7.1, Eos % (Auto) 6.4 H, Baso % (Auto) 0.4, Absolute Neuts (auto) 4.6, Absolute Lymphs (auto) 1.28, Total Counted Not Reportable 07/14/18 09:45: Sodium 140, Potassium 3.2 L, Chloride 103, Carbon Dioxide 28.0, Anion Gap 9, BUN 17, Creatinine 1.15 H, Estim Creat Clear Calc 35.94, Est GFR (MDRD) Af Amer 59 L, Est GFR (MDRD) Non-Af 49 L, BUN/Creatinine Ratio 14.8, Glucose 223 H, Calcium 8.6, Troponin I 0.033 07/14/18 09:45: PT 25.0 H, INR 2.3, APTT 40.1 H 07/14/18 09:45: Magnesium 1.8 07/14/18 09:45: Hemoglobin A1c 7.2 H 07/14/18 12:20: Troponin I 0.127 H 07/14/18 15:41: Troponin I 0.172 H 07/15/18 05:57: WBC 9.8, RBC 4.49, Hgb 13.1, Hct 40.1, MCV 89.3, MCH 29.2, MCHC 32.7, RDW 14.0, RDW Differential 45.3 H, Plt Count 235, MPV 12.4 H 07/15/18 05:57: Sodium 141, Potassium 3.6, Chloride 104, Carbon Dioxide 28.0, Anion Gap 9, BUN 16, Creatinine 1.09 H, Estim Creat Clear Calc 37.92, Est GFR (MDRD) Af Amer 63, Est GFR (MDRD) Non-Af 52 L, BUN/Creatinine Ratio 14.7, Glucose 127 H, Calcium 8.5, Total Bilirubin 0.40, AST 34, ALT 48, Alkaline Phosphatase 93, Total Protein 6.8, Albumin 3.3, Globulin 3.5, Albumin/Globulin Ratio 0.9, Triglycerides 208 H, Cholesterol 167, LDL Cholesterol 48, VLDL Cholesterol 42 H, HDL Cholesterol 77 07/15/18 05:57: PT 23.9 H, INR 2.1 Current Medications Acetaminophen (Tylenol) 650 mg PO Q6H PRN PRN PRN Reason: Non-cardiac pain (mod-severe) Last Admin: 07/14/18 21:10 Dose: 650 mg Hydrocodone Bitart/Acetaminophen ([place] 5mg-325mg) 1 - 2 tablet PO Q6H PRN PRN PRN Reason: Moderate-severe pain Al Hydroxide/Mg Hydroxide (Mylanta Ii) 30 ml PO Q6H PRN PRN PRN Reason: Gastric burning Amiodarone HCl (Cordarone) 200 mg PO DAILY [facility] Last Admin: 07/14/18 14:55 Dose: 200 mg Atorvastatin Calcium (Lipitor) 40 mg PO QHS [facility] Last Admin: 07/14/18 21:10 Dose: 40 mg Clopidogrel Bisulfate (Plavix) 300 mg PO X1 ONE Stop: 07/15/18 08:30 Clopidogrel Bisulfate (Plavix) 75 mg PO DAILY [facility] Hydrochlorothiazide (Hctz) 25 mg PO DAILY [facility] Last Admin: 07/14/18 14:56 Dose: 25 mg Sodium Chloride () 1,000 mls @ 60 mls/hr IV .[id number] [facility] Sodium Chloride () 1,000 mls @ 0 mls/hr IV .Q0M [facility] Influenza Virus Vaccine Quadrival (Fluarix/Fluzone) 0.5 ml IM .ONCE ONE Stop: 07/15/18 10:01 Magnesium Hydroxide (Milk Of Magnesia) 30 ml PO DAILY PRN PRN Reason: Constipation Metoprolol Tartrate (Lopressor (Beta Sheyla)) 100 mg PO DAILY [facility] Last Admin: 07/14/18 14:55 Dose: 100 mg Morphine Sulfate () 1 - 2 mg IV Q4H PRN PRN PRN Reason: PAIN Nitroglycerin (Nitrostat) 0.4 mg SUBLINGUAL Q5M PRN PRN Reason: CHEST PAIN Ondansetron HCl (Zofran) 4 mg IV Q8H PRN PRN PRN Reason: NAUSEA Promethazine HCl (Phenergan) 12.5 mg IV Q6H PRN PRN PRN Reason: NAUSEA/VOMITING Sodium Chloride () 5 - 30 ml IV UD PRN PRN Reason: SALINE FLUSH Venlafaxine HCl (Effexor Xr) 150 mg PO Q72H [facility] Medical Necessity - Tobacco Use Smoking Status: Never smoker Tobacco Use: Non-smoker Assessment/Plan All Active Problems Chest pain (Acute) The patient is a 77 y/o F w/ PMHx: Anxiety and Depression, HTN, HLD, CAD s/p PCI, PAF following w/ Dr. Esparza previously obtaining her care at [facility] prior to its closure who presents to the [facility] ED on 07/14/18 with onset at ~ 8 am while reading left sided burning chest discomfort w/ radiation into her L shoulder only w/ associated nausea, diaphoresis and dyspnea which lasted < 15 minutes, resolved w/ EMS administration ASA and NG therapy. (1) Chest Pain secondary to Acute NSTEMI: EKG in ED SR with LBBB without comparison, CXR w/ no acute findings, initial trop normal x1. Admitted to PCU, placed on a monitored bed, serial cardiac enzymes w/ trending initially 0.033-->increased-->0.127-->0.172. Initially planned stress testing; however, given cardiac enzymes elevated and underlying history, cancelled stress testing and consulted Cardiology. ECHO ordered. Coumadin held w/ INR trending. ASA, NG, morphine. FLP w/ TG 208, TChol 167m KDK 48, VLDL 42, HDL 77. Mag 1.8. Planned cardiac catheterization 07/16/18, assume pending INR trending but deferred reversal per Cardiology. Plavix loaded per Cardiology. (2) CAD: s/p PCI history, following w/ Dr. Esparza, previously had care at [facility], holding coumadin given need for cardiac catheterization w/ therapeutic INR upon presentation, continue to trend INR, metoprolol, statin as noted. (3) New Onset Diabetes mellitus type II: Noted hyperglycemia upon admission, BS 223, HgBA1c 7.2%, will initiate on ADA diet, accu checks w/ ISS, nutrition education and teaching. As noted planned cardiac catheterization, hold on metformin addition, will need to add once appropriate. Adding low dose ACEI. (4) Hypertension: Continue home regimen including metoprolol, hydrochlorothiazide. Adding low dose ACEI given new diagnosis DM and BP mildly above goal. (5) Hyperlipidemia: Continue home statin regimen. AM FLP w/ TG 208, TChol 167m KDK 48, VLDL 42, HDL 77. (6) Anxiety and depression: Continue home Effexor regimen. (7) PAF: Maintain on home amiodarone, metoprolol, coumadin w/ INR trending, appropriate upon presentation. (8) DVT Prophylaxis: SCDs, coumadin held secondary to need for catheterization, trending INR, 2.1, Code Visit Inpatient E&M: 16544 Subs Hosp L2
--- NOTE | 2018-07-15 08:37 | PN_ITS ---
Patient Problems: Active and Suspected Problems Chest pain (Acute) Subjective: Patient with no acute events overnight per self and per nursing report. She states she continues to feel well and has not had no recurrent chest discomfort or burning sensation. Reviewed current status of workup and mildly elevated cardiac enzymes with plan for cardiac catheterization on Monday. She notes Dr. Louis has discussed her current status with her and she understands plan to continue to hold Coumadin for planned cardiac catheterization. Patient denies fevers, chills, nausea, emesis, abdominal pain, chest pain or dyspnea. Objective: Physical Examination: General: awake, alert, oriented x 3 and cooperative, seated upright in bed in no apparent distress. Skin: normal color, turgor, no icterus, cyanosis. HEENT: AT/NC, EOMI, PERRLA, MMM. Lungs: Mildly diminished BS BL bases, moderate effort, no rales, ronchi or wheezing. Heart: Regular rate and rhythm; no gallop, rub audible. Abdomen: soft, NTTP, ND, normal BS. Extremities: no cyanosis, clubbing, or edema. Neurological: patient awake, alert, oriented x 3; cognitive function intact; pupils equally reactive to light and accomodation; cranial nerves II-XII grossly normal, moving all 4 extremities, no focal deficits, strength preserved. Psychiatric: affect appears normal, no acute evidence of depressive or anxiety feelings. Vitals/I&O's: Vital Signs Temp Pulse Resp BP Pulse Ox 98.7 F 58 L 14 149/57 H 93 07/15/18 03:05 07/15/18 07:59 07/15/18 03:05 07/15/18 03:05 07/15/18 07:15 Oxygen Flow Rate (L/min) 2 Oxygen Delivery Method Room Air Weight: 166 lb 3.657 oz Body Mass Index (BMI) 28.5 Intake and Output for Last 24 Hours 07/13/18 07/14/18 07/15/18 23:59 23:59 23:59 Intake Total 550 / 550 Balance 550 / 550 Laboratory Results 07/14/18 09:45: WBC 6.9, RBC 4.53, Hgb 13.1, Hct 40.3, MCV 89.0, MCH 28.9, MCHC 32.5, RDW 14.0, RDW Differential 45.1 H, Plt Count 206, MPV 11.6, Immature Gran % (Auto) 0.100, Neut % (Auto) 67.4, Lymph % (Auto) 18.6 L, [place] % (Auto) 7.1, Eos % (Auto) 6.4 H, Baso % (Auto) 0.4, Absolute Neuts (auto) 4.6, Absolute Lymphs (auto) 1.28, Total Counted Not Reportable 07/14/18 09:45: Sodium 140, Potassium 3.2 L, Chloride 103, Carbon Dioxide 28.0, Anion Gap 9, BUN 17, Creatinine 1.15 H, Estim Creat Clear Calc 35.94, Est GFR (MDRD) Af Amer 59 L, Est GFR (MDRD) Non-Af 49 L, BUN/Creatinine Ratio 14.8, Glucose 223 H, Calcium 8.6, Troponin I 0.033 07/14/18 09:45: PT 25.0 H, INR 2.3, APTT 40.1 H 07/14/18 09:45: Magnesium 1.8 07/14/18 09:45: Hemoglobin A1c 7.2 H 07/14/18 12:20: Troponin I 0.127 H 07/14/18 15:41: Troponin I 0.172 H 07/15/18 05:57: WBC 9.8, RBC 4.49, Hgb 13.1, Hct 40.1, MCV 89.3, MCH 29.2, MCHC 32.7, RDW 14.0, RDW Differential 45.3 H, Plt Count 235, MPV 12.4 H 07/15/18 05:57: Sodium 141, Potassium 3.6, Chloride 104, Carbon Dioxide 28.0, Anion Gap 9, BUN 16, Creatinine 1.09 H, Estim Creat Clear Calc 37.92, Est GFR (MDRD) Af Amer 63, Est GFR (MDRD) Non-Af 52 L, BUN/Creatinine Ratio 14.7, Glucose 127 H, Calcium 8.5, Total Bilirubin 0.40, AST 34, ALT 48, Alkaline Phosphatase 93, Total Protein 6.8, Albumin 3.3, Globulin 3.5, Albumin/Globulin Ratio 0.9, Triglycerides 208 H, Cholesterol 167, LDL Cholesterol 48, VLDL Cholesterol 42 H, HDL Cholesterol 77 07/15/18 05:57: PT 23.9 H, INR 2.1 Current Medications Acetaminophen (Tylenol) 650 mg PO Q6H PRN PRN PRN Reason: Non-cardiac pain (mod-severe) Last Admin: 07/14/18 21:10 Dose: 650 mg Hydrocodone Bitart/Acetaminophen ([place] 5mg-325mg) 1 - 2 tablet PO Q6H PRN PRN PRN Reason: Moderate-severe pain Al Hydroxide/Mg Hydroxide (Mylanta Ii) 30 ml PO Q6H PRN PRN PRN Reason: Gastric burning Amiodarone HCl (Cordarone) 200 mg PO DAILY [facility] Last Admin: 07/14/18 14:55 Dose: 200 mg Atorvastatin Calcium (Lipitor) 40 mg PO QHS [facility] Last Admin: 07/14/18 21:10 Dose: 40 mg Clopidogrel Bisulfate (Plavix) 300 mg PO X1 ONE Stop: 07/15/18 08:30 Clopidogrel Bisulfate (Plavix) 75 mg PO DAILY [facility] Hydrochlorothiazide (Hctz) 25 mg PO DAILY [facility] Last Admin: 07/14/18 14:56 Dose: 25 mg Sodium Chloride () 1,000 mls @ 60 mls/hr IV .[id number] [facility] Sodium Chloride () 1,000 mls @ 0 mls/hr IV .Q0M [facility] Influenza Virus Vaccine Quadrival (Fluarix/Fluzone) 0.5 ml IM .ONCE ONE Stop: 07/15/18 10:01 Magnesium Hydroxide (Milk Of Magnesia) 30 ml PO DAILY PRN PRN Reason: Constipation Metoprolol Tartrate (Lopressor (Beta Sheyla)) 100 mg PO DAILY [facility] Last Admin: 07/14/18 14:55 Dose: 100 mg Morphine Sulfate () 1 - 2 mg IV Q4H PRN PRN PRN Reason: PAIN Nitroglycerin (Nitrostat) 0.4 mg SUBLINGUAL Q5M PRN PRN Reason: CHEST PAIN Ondansetron HCl (Zofran) 4 mg IV Q8H PRN PRN PRN Reason: NAUSEA Promethazine HCl (Phenergan) 12.5 mg IV Q6H PRN PRN PRN Reason: NAUSEA/VOMITING Sodium Chloride () 5 - 30 ml IV UD PRN PRN Reason: SALINE FLUSH Venlafaxine HCl (Effexor Xr) 150 mg PO Q72H [facility] Medical Necessity - Tobacco Use Smoking Status: Never smoker Tobacco Use: Non-smoker Assessment/Plan All Active Problems Chest pain (Acute) The patient is a 77 y/o F w/ PMHx: Anxiety and Depression, HTN, HLD, CAD s/p PCI, PAF following w/ Dr. Esparza previously obtaining her care at [facility] prior to its closure who presents to the [facility] ED on 07/14/18 with onset at ~ 8 am while reading left sided burning chest discomfort w/ radiation into her L shoulder only w/ associated nausea, diaphoresis and dyspnea which lasted < 15 minutes, resolved w/ EMS administration ASA and NG therapy. (1) Chest Pain secondary to Acute NSTEMI: EKG in ED SR with LBBB without comparison, CXR w/ no acute findings, initial trop normal x1. Admitted to PCU, placed on a monitored bed, serial cardiac enzymes w/ trending initially 0.033-->increased-->0.127-->0.172. Initially planned stress testing; however, jessica magaña cardiac enzymes elevated and underlying history, cancelled stress testing and consulted Cardiology. ECHO ordered. Coumadin held w/ INR trending. ASA, NG, morphine. FLP w/ TG 208, TChol 167m KDK 48, VLDL 42, HDL 77. Mag 1.8. Planned cardiac catheterization 07/16/18, assume pending INR trending but deferred reversal per Cardiology. Plavix loaded per Cardiology. (2) CAD: s/p PCI history, following w/ Dr. Esparza, previously had care at [facility], holding coumadin given need for cardiac catheterization w/ therapeutic INR upon presentation, continue to trend INR, metoprolol, statin as noted. (3) New Onset Diabetes mellitus type II: Noted hyperglycemia upon admission, BS 223, HgBA1c 7.2%, will initiate on ADA diet, accu checks w/ ISS, nutrition education and teaching. As noted planned cardiac catheterization, hold on metformin addition, will need to add once appropriate. Adding low dose ACEI. (4) Hypertension: Continue home regimen including metoprolol, hydrochlorothiazide. Adding low dose ACEI given new diagnosis DM and BP mildly above goal. (5) Hyperlipidemia: Continue home statin regimen. AM FLP w/ TG 208, TChol 167m KDK 48, VLDL 42, HDL 77. (6) Anxiety and depression: Continue home Effexor regimen. (7) PAF: Maintain on home amiodarone, metoprolol, coumadin w/ INR trending, appropriate upon presentation. (8) DVT Prophylaxis: SCDs, coumadin held secondary to need for catheterization, trending INR, 2.1, Code Visit Inpatient E&M: 78561 Subs Hosp L2
[2018-07-15] MEDS: Clopidogrel Bisulfate 300 MG Tablet PO (09:53)
[2018-07-15] MEDS: Amiodarone 200 MG Tablet PO (09:53)
[2018-07-15] MEDS: Aspirin E.C. 81 MG Tablet PO (09:53)
[2018-07-15] MEDS: hydroCHLOROthiazide 25 MG Tablet PO (09:54)
[2018-07-15] MEDS: Metoprolol Tartrate 100 MG Tablet PO (09:54)
[2018-07-15 11:16] LABS: Bedside Glucose 243 mg/dL (70-110)
[2018-07-15] MEDS: 0.9% NaCl Peripheral Flush Adult/Peds IV ×2 (12:38→21:56)
[2018-07-15] MEDS: Insulin Lispro 100 UNIT/ML INSULN.PEN SC (13:20)
[2018-07-15 16:30] LABS: Bedside Glucose 123 mg/dL (70-110)
[2018-07-15] MEDS: Atorvastatin Calcium 20 MG Tablet 40 MG PO (21:56)
[2018-07-15] MEDS: 0.9% Normal Saline 1,000 ML 60 ML IV (21:57)
[2018-07-15 22:10] LABS: Bedside Glucose 111 mg/dL (70-110)
[2018-07-16] VITALS (17 sets, daily range): BP systolic 120–165; BP diastolic 49–63; PULSE 52–74; RESP 14–18; TEMP 36.6–37; O2SAT 93–100
[2018-07-16 02:51] LABS: Bacteria 0 SEEN /hpf (None Seen); Mucous, Urine 0 SEEN /hpf (<or=2+); Red Blood Cells-Urine 0 SEEN /hpf (0-5); Squamous Epithelial Cells - UA 0 SEEN /hpf (5-10); White Blood Cells 0 SEEN /hpf (0-5)
[2018-07-16 02:59] LABS: Color, Urine Yellow (Yellow); Glucose, Dipstick Normal (Normal); Ketone-Dipstick Negative (Negative); Leukocyte Esterase-Dipstick 25 /ul (Negative); Nitrite-Dipstick Negative (Negative); Occult Blood-Urine 50 /ul (Negative); Protein-Dipstick Negative (Negative); Urine Bilirubin Dipstick Negative (Negative); Urine Clarity Clear (Clear); Urine Urobilinogen Normal (Normal); Urine pH 6.5 (5.0 - 8.0)
--- NOTE | 2018-07-16 05:55 | EKG12_ITS ---
Test Reason : AM Blood Pressure : / mmHG Vent. Rate : 060 BPM Atrial Rate : 060 BPM P-R Int : 182 ms QRS Dur : 160 ms QT Int : 600 ms P-R-T Axes : 052 -55 149 degrees QTc Int : 600 ms Normal sinus rhythm Left axis deviation Left bundle branch block Abnormal ECG When compared with ECG of 15-JUL-2018 05:43, MANUAL COMPARISON REQUIRED, DATA IS UNCONFIRMED Confirmed by NGHIA KAUFMAN, CAITLYN ([id number]), fashion editor CHEPE DEMPSEY ([id number]) on 07/18/2018 3:36:52 PM Referred By: ARSH Confirmed By:CAITLYN AGRAWAL MD
[2018-07-16 06:05] LABS: Absolute Lymphocyte Count 1.68 X10^3/ul (0.83-4.51); Absolute Neutrophil Count 5.2 X10^3/uL (2.0-7.7); Basophil# 0.04 X10^3/uL; Basophil% 0.5 % (0-1); Eosinophils% 6.1 % (0-5); Hematocrit 39.4 % (37-47); Hemoglobin 12.9 g/dl (12.0-15.0); Lymphocyte # 1.68 X10^3/ul (4.0); Lymphocyte % 20.3 % (19-41); Mean Corp Hgb Conc 32.7 g/gl (32-36); Mean Corpuscular Hgb 29.2 pg (27.0-32.0); Mean Corpuscular Volume 89.1 fL (81-99); Mean Platelet Vol. 11.6 fl (6.2-12.0); Monocyte# 0.84 X10^3/uL; Monocyte% 10.2 % (0-10); Neutrophil # 5.19 X10^3/uL (2.7-7.7); Neutrophil % 62.8 % (47-70); Platelet Count 187 K/mm3 (150-450); RBC Distribution Width CV 13.9 % (11.6-14.6); RBC Distribution Width SD 45.6 fl (35.1-43.9); Red Blood Count 4.42 M/mm3 (4.2-5.4); White Blood Count 8.3 K/mm3 (4.4-11.0)
[2018-07-16] MEDS: Clopidogrel Bisulfate 75 MG Tablet PO (06:07)
[2018-07-16] MEDS: Aspirin E.C. 81 MG Tablet PO (06:07)
[2018-07-16] MEDS: Lisinopril 2.5 MG Tablet PO (06:07)
[2018-07-16] MEDS: Metoprolol Tartrate 100 MG Tablet PO (06:09)
[2018-07-16 06:10] LABS: POSITIVE COUNT NO; POSITIVE DIFFERENTIAL NO; POSITIVE MORPHOLOGY NO; Partial Thromboplast Time 34.8 Seconds (24.1-36.2)
[2018-07-16] MEDS: Amiodarone 200 MG Tablet PO (06:10)
[2018-07-16 06:11] LABS: Anion Gap 9 (5-15); BUN 17 mg/dL (7-18); BUN/Creat Ratio 19.7 RATIO (10-20); Calcium,Total 8.7 mg/dL (8.5-10.1); Chloride 105 mmol/L (98-107); Creatinine, Serum 0.86 mg/dL (0.55-1.02); EST Glomerular Filtration Rate 68 mL/min (>60); Est Glom Filt Rate - Afr Amer 82 mL/min (>60); Estimated Creatinine Clearance 48.06 ml/min; Glucose 123 mg/dL (74-106); Potassium 4.1 mmol/L (3.5-5.1); Sodium Level 141 mmol/L (136-145)
[2018-07-16 06:18] LABS: International Normalized Ratio 1.9
[2018-07-16 06:56] LABS: Bedside Glucose 112 mg/dL (70-110)
--- NOTE | 2018-07-16 07:39 | NURSING ---
Report called to liaison inspection laboratory assistant ABDI Altman RN
--- NOTE | 2018-07-16 08:36 | PCM.PN.CARD ---
Subjectve: Patient seen and evaluated. Underwent cardiac catheterization this morning. Objective: Vital Signs Temp Pulse Resp BP Pulse Ox 97.9 F 56 L 14 160/62 H 93 07/16/18 06:04 07/16/18 07:24 07/16/18 06:04 07/16/18 06:09 07/16/18 06:04 Oxygen Flow Rate (L/min) 2 Oxygen Delivery Method Room Air Weight: 166 lb 3.657 oz Body Mass Index (BMI) 28.5 Intake and Output for Last 24 Hours 07/14/18 07/15/18 07/16/18 23:59 23:59 23:59 Intake Total 550 / 550 1522 / 1522 361 / 361 Balance 550 / 550 1522 / 1522 361 / 361 General: Awake, Alert, Oriented x 3 HEENT: PERRL, EOMI, Sclera Non Icteric Neck: Supple, Good ROM, No Lymph Node Enlargement Lungs: Clear to auscultation Cardiovascular: Regular Rhythm, Normal S1, Normal S2, No Murmurs, No Rubs, No Gallops Vascular: No Carotid Bruits, Normal Femoral Pulses, Normal Radial Pulses, Normal Dorsalis Pedal Pulse, Normal Posterior Tibial Pulses Abdomen: Bowel Sounds Present, Soft, Non Tender, No HSM, No Organomegaly Extremities: No Cyanosis, No Clubbing, No edema Neurological: No Focal Motor or Sensory Deficit 07/16/18 02:15: Urine Color Yellow, Urine Clarity Clear, Urine pH 6.5, Ur Specific [place] 1.010, Urine Protein Negative, Urine Glucose (UA) Normal, Urine Ketones Negative, Urine Occult Blood 50 H, Urine Nitrite Negative, Urine Bilirubin Negative, Urine Urobilinogen Normal, Ur Leukocyte Esterase 25 H, Urine RBC 0 SEEN, Urine WBC 0 SEEN 07/16/18 05:30: PT 22.0 H, INR 1.9, APTT 34.8 07/16/18 05:30: WBC 8.3, RBC 4.42, Hgb 12.9, Hct 39.4, MCV 89.1, MCH 29.2, MCHC 32.7, RDW 13.9, RDW Differential 45.6 H, Plt Count 187, MPV 11.6, Immature Gran % (Auto) 0.100, Neut % (Auto) 62.8, Lymph % (Auto) 20.3, [place] % (Auto) 10.2 H, Eos % (Auto) 6.1 H, Baso % (Auto) 0.5, Absolute Neuts (auto) 5.2, Total Counted Not Reportable 07/16/18 05:30: Sodium 141, Potassium 4.1, Chloride 105, Carbon Dioxide 27.0, Anion Gap 9, BUN 17, Creatinine 0.86, Est GFR (MDRD) Af Amer 82, Est GFR (MDRD) Non-Af 68, BUN/Creatinine Ratio 19.7, Glucose 123 H, Calcium 8.7 Rhythm: EKG: ECHO: Stress Test: Cardiac Cath: PCI: CT Surgery: Holter monitor: EPS: PPM: CXR: Chest CT Scan: Medical Necessity - Tobacco Use Smoking Status: Never smoker Tobacco Use: Non-smoker Assessment/Plan 1. Chest pain in a patient with known coronary artery disease. She presents with chest discomfort with a history of known coronary artery disease and previous angioplasty and stenting. She has an electric cardiogram which demonstrates a left bundle branch block. Cardiac catheterization demonstrated the following: Normal left main coronary artery. Left anterior descending artery with 95% proximal stenosis. Left circumflex artery with mid segment 80% stenosis. Previously placed stent in the right coronary arteries with severe stenosis of 99%. Faint distal filling of the right coronary artery noted Aortogram demonstrating mildly dilated aorta We will obtain an echocardiogram to assess her left ventricular function as well as her aortic valve integrity. 2. Paroxysmal atrial fibrillation Patient is maintaining sinus rhythm with a left bundle branch block. Continue antiarrhythmic therapy with amiodarone. 3. Hypertension Patient appears to be well controlled with respect to the hypertension. Will continue same medications. 4. Hyperlipidemia Will recommend continuing high intensity statin. Would recommend transfer to a tertiary care facility to consider coronary bypass surgery. Thank you for allowing me to participate in the care of your patient. Please don't hesitate to call if any issues arise
--- NOTE | 2018-07-16 08:39 | PN.CARD_ITS ---
Subjectve: Patient seen and evaluated. Underwent cardiac catheterization this morning. Objective: Vital Signs Temp Pulse Resp BP Pulse Ox 97.9 F 56 L 14 160/62 H 93 07/16/18 06:04 07/16/18 07:24 07/16/18 06:04 07/16/18 06:09 07/16/18 06:04 Oxygen Flow Rate (L/min) 2 Oxygen Delivery Method Room Air Weight: 166 lb 3.657 oz Body Mass Index (BMI) 28.5 Intake and Output for Last 24 Hours 07/14/18 07/15/18 07/16/18 23:59 23:59 23:59 Intake Total 550 / 550 1522 / 1522 361 / 361 Balance 550 / 550 1522 / 1522 361 / 361 General: Awake, Alert, Oriented x 3 HEENT: PERRL, EOMI, Sclera Non Icteric Neck: Supple, Good ROM, No Lymph Node Enlargement Lungs: Clear to auscultation Cardiovascular: Regular Rhythm, Normal S1, Normal S2, No Murmurs, No Rubs, No Gallops Vascular: No Carotid Bruits, Normal Femoral Pulses, Normal Radial Pulses, Normal Dorsalis Pedal Pulse, Normal Posterior Tibial Pulses Abdomen: Bowel Sounds Present, Soft, Non Tender, No HSM, No Organomegaly Extremities: No Cyanosis, No Clubbing, No edema Neurological: No Focal Motor or Sensory Deficit 07/16/18 02:15: Urine Color Yellow, Urine Clarity Clear, Urine pH 6.5, Ur Specific [place] 1.010, Urine Protein Negative, Urine Glucose (UA) Normal, Urine Ketones Negative, Urine Occult Blood 50 H, Urine Nitrite Negative, Urine Bilirubin Negative, Urine Urobilinogen Normal, Ur Leukocyte Esterase 25 H, Urine RBC 0 SEEN, Urine WBC 0 SEEN 07/16/18 05:30: PT 22.0 H, INR 1.9, APTT 34.8 07/16/18 05:30: WBC 8.3, RBC 4.42, Hgb 12.9, Hct 39.4, MCV 89.1, MCH 29.2, MCHC 32.7, RDW 13.9, RDW Differential 45.6 H, Plt Count 187, MPV 11.6, Immature Gran % (Auto) 0.100, Neut % (Auto) 62.8, Lymph % (Auto) 20.3, [place] % (Auto) 10.2 H, Eos % (Auto) 6.1 H, Baso % (Auto) 0.5, Absolute Neuts (auto) 5.2, Total Counted Not Reportable 07/16/18 05:30: Sodium 141, Potassium 4.1, Chloride 105, Carbon Dioxide 27.0, Anion Gap 9, BUN 17, Creatinine 0.86, Est GFR (MDRD) Af Amer 82, Est GFR (MDRD) Non-Af 68, BUN/Creatinine Ratio 19.7, Glucose 123 H, Calcium 8.7 Rhythm: EKG: ECHO: Stress Test: Cardiac Cath: PCI: CT Surgery: Holter monitor: EPS: PPM: CXR: Chest CT Scan: Medical Necessity - Tobacco Use Smoking Status: Never smoker Tobacco Use: Non-smoker Assessment/Plan 1. Chest pain in a patient with known coronary artery disease. * She presents with chest discomfort with a history of known coronary artery disease and previous angioplasty and stenting. She has an electric cardiogram which demonstrates a left bundle branch block. * Cardiac catheterization demonstrated the following: Normal left main coronary artery. Left anterior descending artery with 95% proximal stenosis. Left circumflex artery with mid segment 80% stenosis. Previously placed stent in the right coronary arteries with severe stenosis of 99%. Faint distal filling of the right coronary artery noted Aortogram demonstrating mildly dilated aorta We will obtain an echocardiogram to assess her left ventricular function as well as her aortic valve integrity. 2. Paroxysmal atrial fibrillation * Patient is maintaining sinus rhythm with a left bundle branch block. * * Continue antiarrhythmic therapy with amiodarone. * 3. Hypertension * Patient appears to be well controlled with respect to the hypertension. * Will continue same medications. * 4. Hyperlipidemia * Will recommend continuing high intensity statin. * * * Would recommend transfer to a tertiary care facility to consider coronary bypass surgery. * Thank you for allowing me to participate in the care of your patient. Please don't hesitate to call if any issues arise
--- NOTE | 2018-07-16 08:45 | CL.D_ITS ---
Patient Name: EDDI RAMÍREZ Study Date: 07/16/2018 Performing: Pardeep Louis MD Ht: 64 inches 163 cm : 1940 Wt: 165.6 lbs 75 kg Age: 77 Gender: female BSA: 1.81 PROCEDURE(S) PERFORMED [id number] ROOT ANGIO WITH HEART CATH CLINICAL PROFILE AND INDICATIONS Indications: Worsening Angina Heart Failure: None Stress/Imaging Stress/Image Study Performed: No CAD Presentations: Unstable angina. CONCLUSIONS Severe three-vessel coronary artery disease with newly diagnosed diabetes mellitus. RECOMMENDATIONS Would recommend consideration for coronary bypass surgery or multivessel angioplasty. DESCRIPTION OF PROCEDURE The patient arrived to the procedure lab. The risks and benefits of the procedure as well as a full d escription of our services here and current unavailability of surgical backup were fully explained to the patient and/or their significant other prior to the catheterization. The Timeout was completed, verifying the correct patient and procedure. The patient's procedural site was prepped and draped in the usual fashion. Local anesthetic was given subcutaneously to right radial region with Lidocaine 2% . Using a modified Seldinger technique, arterial access was obtained via the right radial artery, a 6 Fr sheath was inserted. Left Coronary Artery selective angiography was performed in multiple views u sing a 5 Fr. 4.0 [place] catheter. Right Coronary Artery selective angiography was then performed in mu ltiple views using a 5 Fr. 4.0 [place] catheter.The arterial sheath was pulled and a TR Band was applie d for hemostasis CORONARY ANGIOGRAPHY DOMINANCE: Right Dominant LEFT MAIN: Angiographically normal LEFT ANTERIOR DECENDING ARTERY: PROX LAD: 95 irregular % Stenosis CIRCUMFLEX ARTERY: MID CIRC: 80 % Stenosis RIGHT CORONARY ARTERY: PROX RCA: Previously placed stent has an instent 99 % restenosis MID RCA: Previously placed stent has an instent 99 % restenosis DISTAL RCA: Previously placed stent has an instent 99 % restenosis RT PDA: Proximal - Mild luminal irregularities less than 30% AORTIC ROOT: Dilated COMPLICATIONS No Complications PROCEDURE MEDICATIONS Fentanyl 50 mcg IV Versed 1 mg IV Oxygen: 2 L/min via nasal cannula Heparin diluted in 23cc Heparinized saline. Patient given 10cc IA of this solution. 07/16/2018 08:06: 51 Verapamil 2.5mg, Ntg 100mcgs, 2000 units of Heparin diluted in 23cc Heparinized saline. Patient give n 10cc IA of this solution. 07/16/2018 08:06:51 SUMMARY OF HEMODYNAMIC DATA Time AIR REST ECG 07:48:00 AO 149/58 (94) SA 08:08:55 Signed By Pardeep Louis MD On 07/16/2018 08:44:50 Pardeep Louis MD
[2018-07-16] MEDS: hydroCHLOROthiazide 25 MG Tablet PO (09:10)
[2018-07-16] MEDS: Venlafaxine XR 150 MG Capsule PO (09:10)
--- NOTE | 2018-07-16 09:56 | PCM.DC.SUM ---
Discharge Date and Diagnosis - Problem List Patient Problems: Active and Suspected Problems Chest pain (Acute) Date of Admission: 07/14/18 Date of Discharge: 07/16/18 - Primary Discharge Diagnosis Active and Suspected Problems (1) Chest Pain secondary to Acute NSTEMI and Active Triple Vessel Disease (Cardiology recommended transfer to Tertiary for CABG assessment) 07/16/18 Cardiac catheterization w/ normal left main coronary artery, left anterior descending artery with 95% proximal stenosis, left circumflex artery with mid segment 80% stenosis, previously placed stent in the right coronary arteries with severe stenosis of 99%, faint distal filling of the right coronary artery noted, aortogram demonstrating mildly dilated aorta (2) CAD s/p PCI history (3) New Onset Diabetes mellitus type II (HgBA1c 7.2%) (4) Hypertension (5) Hyperlipidemia (6) Anxiety and depression (7) PAF (coumadin held for cardiac catheterization) - Secondary Discharge Diagnosis Chronic Problems PAF (paroxysmal atrial fibrillation) (Chronic) HLD (hyperlipidemia) (Chronic) Depression (Chronic) CAD (coronary artery disease) (Chronic) Benign essential HTN (Chronic) Hospital Course and Treatment Dr. Louis Cardiology Operations: None Procedures: 2-D Echocardiogram, Cardiac catheterization, EKG Summary of Care Provided: The patient is a 77 y/o F w/ PMHx: Anxiety and Depression, HTN, HLD, CAD s/p PCI, PAF following w/ Dr. Esparza previously obtaining her care at [facility] prior to its closure who presented to the [facility] ED on 07/14/18 with onset at ~ 8 am while reading left sided burning chest discomfort w/ radiation into her L shoulder only w/ associated nausea, diaphoresis and dyspnea which lasted < 15 minutes, resolved w/ EMS administration ASA and NG therapy. EKG in ED SR with LBBB without comparison, CXR w/ no acute findings, initial trop normal x1. Admitted to PCU, placed on a monitored bed, serial cardiac enzymes w/ trending initially 0.033-->increased-->0.127-->0.172. Initially planned stress testing; however, given cardiac enzymes elevated and underlying history, cancelled stress testing and consulted Cardiology. Coumadin held w/ INR trending. FLP w/ TG 208, TChol 167, LDL 48, VLDL 42, HDL 77. Mag 1.8 w/ supplementation. Plavix loaded per Cardiology. Cardiac catheterization 07/16/18 w/ normal left main coronary artery, left anterior descending artery with 95% proximal stenosis, left circumflex artery with mid segment 80% stenosis, previously placed stent in the right coronary arteries with severe stenosis of 99%, faint distal filling of the right coronary artery noted, aortogram demonstrating mildly dilated aorta. Noted hyperglycemia upon admission, BS 223, HgBA1c 7.2%, initiated on ADA diet, accu checks w/ ISS, nutrition education and teaching with planned start metformin upon discharge following appropriate parameters given catheterization; however, given triple vessel disease patient transfer to [facility] arranged for consideration/evaluation for CABG per Cardiology Dr. Louis recommendation. DAY OF DISCHARGE PROGRESS NOTE: Subjective: Patient without acute event overnight per self and nursing report. She denies any recurrent chest pain. She underwent cardiac catheterization this AM with notable disease w/ prior known CAD history. Patient denies fever, chills, nausea, emesis, abdominal pain, recurrent chest pain or dyspnea. Patient agreeable to discharge to [facility] for assessment for CABG given triple vessel disease. Objective: T 98.3, HR 52, BP 137/62, RR 18, 97% on RA. Physical Examination (Prior to catheterization): General: awake, alert, oriented x 3 and cooperative, seated upright in bed in no apparent distress. Skin: normal color, turgor, no icterus, cyanosis. HEENT: AT/NC, EOMI, PERRLA, MMM. Lungs: Mildly diminished BS BL bases, moderate effort, no rales, ronchi or wheezing. Heart: Regular rate and rhythm; no gallop, rub audible. Abdomen: soft, NTTP, ND, normal BS. Extremities: no cyanosis, clubbing, or edema. Neurological: patient awake, alert, oriented x 3; cognitive function intact; pupils equally reactive to light and accomodation; cranial nerves II-XII grossly normal, moving all 4 extremities, no focal deficits, strength preserved. Psychiatric: affect appears normal, no acute evidence of depressive or anxiety feelings. Assessment and Plan: Please see hospital summary above. Active Medications Generic Name Dose Route Start Last Admin Trade Name Freq PRN Reason Stop Dose Admin Acetaminophen 650 mg 07/14/18 11:36 07/14/18 21:10 Tylenol PO 650 mg Q6H PRN PRN Administration Non-cardiac pain (mod-severe) Hydrocodone Bitart/Acetaminophen 1 - 2 tablet 07/14/18 11:36 [place] 5mg-325mg PO Q6H PRN PRN Moderate-severe pain Al Hydroxide/Mg Hydroxide 30 ml 07/14/18 11:36 Mylanta Ii PO Q6H PRN PRN Gastric burning Amiodarone HCl 200 mg 07/15/18 10:00 07/16/18 06:10 Cordarone PO 200 mg DAILY LUZ Administration Aspirin 81 mg 07/15/18 09:00 07/16/18 06:07 Ecotrin PO 81 mg DAILY@0800 LUZ Administration Atorvastatin Calcium 40 mg 07/14/18 22:00 07/15/18 21:56 Lipitor PO 40 mg QHS LUZ Administration Clopidogrel Bisulfate 75 mg 07/16/18 07:00 07/16/18 06:07 Plavix PO 75 mg DAILY LUZ Administration Hydrochlorothiazide 25 mg 07/15/18 10:00 07/16/18 09:10 Hctz PO 25 mg DAILY LUZ Administration Sodium Chloride 1,000 mls @ 60 mls/hr 07/15/18 23:55 07/15/18 21:57 IV 60 mls/hr .[id number] LUZ Administration Sodium Chloride 1,000 mls @ 15 mls/hr 07/16/18 07:00 07/15/18 22:01 IV Not Given .Q48H [facility] KVO Insulin Human Lispro 0 unit 07/15/18 11:00 07/16/18 06:57 Humalog Kwikpen (Bkc) SC Not Given ACHS [facility] Protocol Lisinopril 2.5 mg 07/16/18 10:00 07/16/18 06:07 Zestril PO 2.5 mg DAILY [facility] Administration Magnesium Hydroxide 30 ml 07/14/18 11:36 Milk Of Magnesia PO DAILY PRN Constipation Metoprolol Tartrate 100 mg 07/15/18 10:00 07/16/18 06:09 Lopressor (Beta Sheyla) PO 100 mg DAILY [facility] Administration Morphine Sulfate 1 - 2 mg 07/14/18 11:36 IV Q4H PRN PRN PAIN Nitroglycerin 0.4 mg 07/14/18 11:36 Nitrostat SUBLINGUAL Q5M PRN CHEST PAIN Ondansetron HCl 4 mg 07/14/18 11:36 Zofran IV Q8H PRN PRN NAUSEA Promethazine HCl 12.5 mg 07/14/18 11:36 Phenergan IV Q6H PRN PRN NAUSEA/VOMITING Sodium Chloride 5 - 30 ml 07/14/18 12:55 07/15/18 21:56 IV 10 ml UD PRN Administration SALINE FLUSH Venlafaxine HCl 150 mg 07/16/18 10:00 07/16/18 09:10 Effexor Xr PO 150 mg Q72H LUZ Administration Home Medications: Medications to take at Discharge Amiodarone HCl [Pacerone] 200 mg PO DAILY 07/14/18 Atorvastatin Calcium 40 mg PO QHS 07/14/18 Metoprol/Hydrochlorothiazide [Lopressor Hct 100-25 Tablet] 1 tab PO DAILY 07/14/18 Venlafaxine XR [Effexor Xr] 150 mg PO QODAY 07/14/18 Warfarin Sodium 1.5 mg PO MOTUWEFRSA 07/14/18 Warfarin Sodium 3 mg PO SUTH 07/14/18 Primary Care Physician: Freddy Jonas DO [STAFF PHYSICIAN] - Disposition: Acute care Hospital Minutes spent on discharge:: 35 Patient Condition:: Stable Medical Necessity - Tobacco Use Smoking Status: Never smoker Tobacco Use: Non-smoker Meaningful Use Info Meaningful Use Diagnoses (Choose all that apply): AMI - AMI Aspirin given w/in 24hrs of arrival?: Yes ASA at discharge?: Yes Statins at discharge?: Yes Raulito/ARB at discharge?: Yes Beta Sheyla at discharge?: Yes Done w/ Acute MD measure.: Yes Code Visit Inpatient E&M: 22026 Disch Hosp
--- NOTE | 2018-07-16 10:05 | DS.PCM_ITS ---
Discharge Date and Diagnosis - Problem List Patient Problems: Active and Suspected Problems Chest pain (Acute) Date of Admission: 07/14/18 Date of Discharge: 07/16/18 - Primary Discharge Diagnosis Active and Suspected Problems (1) Chest Pain secondary to Acute NSTEMI and Active Triple Vessel Disease (Cardiology recommended transfer to Tertiary for CABG assessment) 07/16/18 Cardiac catheterization w/ normal left main coronary artery, left anterior descending artery with 95% proximal stenosis, left circumflex artery with mid segment 80% stenosis, previously placed stent in the right coronary arteries with severe stenosis of 99%, faint distal filling of the right coronary artery noted, aortogram demonstrating mildly dilated aorta (2) CAD s/p PCI history (3) New Onset Diabetes mellitus type II (HgBA1c 7.2%) (4) Hypertension (5) Hyperlipidemia (6) Anxiety and depression (7) PAF (coumadin held for cardiac catheterization) - Secondary Discharge Diagnosis Chronic Problems PAF (paroxysmal atrial fibrillation) (Chronic) HLD (hyperlipidemia) (Chronic) Depression (Chronic) CAD (coronary artery disease) (Chronic) Benign essential HTN (Chronic) Hospital Course and Treatment Dr. Louis Cardiology Operations: None Procedures: 2-D Echocardiogram, Cardiac catheterization, EKG Summary of Care Provided: The patient is a 77 y/o F w/ PMHx: Anxiety and Depression, HTN, HLD, CAD s/p PCI, PAF following w/ Dr. Esparza previously [facility] to [facility] who presented to the [facility] ED on 07/14/18 with onset at ~ 8 am while reading left sided burning chest discomfort w/ radiation into her L shoulder only w/ associated nausea, diaphoresis and dyspnea which lasted < 15 minutes, resolved w/ EMS administration ASA and NG therapy. EKG in ED SR with LBBB without comparison, CXR w/ no acute findings, initial trop normal x1. Admitted to PCU, placed on a monitored bed, serial cardiac enzymes w/ trending initially 0.033-->increased-->0.127-->0.172. Initially planned stress testing; however, given cardiac enzymes elevated and underlying history, cancelled stress testing and consulted Cardiology. Coumadin held w/ INR trending. FLP w/ TG 208, TChol 167, LDL 48, VLDL 42, HDL 77. Mag 1.8 w/ supplementation. Plavix loaded per Cardiology. Cardiac catheterization 07/16/18 w/ normal left main coronary artery, left anterior descending artery with 95% proximal stenosis, left circumflex artery with mid segment 80% stenosis, previously placed stent in the right cor onary arteries with severe stenosis of 99%, faint distal filling of the right coronary artery noted, aortogram demonstrating mildly dilated aorta. Noted hyperglycemia upon admission, BS 223, HgBA1c 7.2%, initiated on ADA diet, accu checks w/ ISS, nutrition education and teaching with planned start metformin upon discharge following appropriate parameters given catheterization; however, given triple vessel disease patient transfer to [facility] arranged for consideration/evaluation for CABG per Cardiology Dr. Louis recommendation. DAY OF DISCHARGE PROGRESS NOTE: Subjective: Patient without acute event overnight per self and nursing report. She denies any recurrent chest pain. She underwent cardiac catheterization this AM with notable disease w/ prior known CAD history. Patient denies fever, chi lls, nausea, emesis, abdominal pain, recurrent chest pain or dyspnea. Patient agreeable to discharge to [facility] for assessment for CABG given triple vessel disease. Objective: T 98.3, HR 52, BP 137/62, RR 18, 97% on RA. Physical Examination (Prior to catheterization): General: awake, alert, oriented x 3 and cooperative, seated upright in bed in no apparent distress. Skin: normal color, turgor, no icterus, cyanosis. HEENT: AT/NC, EOMI, PERRLA, MMM. Lungs: Mildly diminished BS BL bases, moderate effort, no rales, ronchi or wheezing. Heart: Regular rate and rhythm; no gallop, rub audible. Abdomen: soft, NTTP, ND, normal BS. Extremities: no cyanosis, clubbing, or edema. Neurological: patient awake, alert, oriented x 3; cognitive function intact; pupils equally reactive to light and accomodation; cranial nerves II-XII grossly normal, moving all 4 extremities, no focal deficits, strength preserved. Psychiatric: affect appears normal, no acute evidence of depressive or anxiety feelings. Assessment and Plan: Please see hospital summary above. Active Medications Generic Name Dose Route Start Last Admin Trade Name Freq PRN Reason Stop Dose Admin Acetaminophen 650 mg 07/14/18 11:36 07/14/18 21:10 Tylenol PO 650 mg Q6H PRN PRN Administration Non-cardiac pain (mod-severe) Hydrocodone Bitart/Acetaminophen 1 - 2 tablet 07/14/18 11:36 [place] 5mg-325mg PO Q6H PRN PRN Moderate-severe pain Al Hydroxide/Mg Hydroxide 30 ml 07/14/18 11:36 Mylanta Ii PO Q6H PRN PRN Gastric burning Amiodarone HCl 200 mg 07/15/18 10:00 07/16/18 06:10 Cordarone PO 200 mg DAILY LUZ Administration Aspirin 81 mg 07/15/18 09:00 07/16/18 06:07 Ecotrin PO 81 mg DAILY@0800 LUZ Administration Atorvastatin Calcium 40 mg 07/14/18 22:00 07/15/18 21:56 Lipitor PO 40 mg QHS [facility] Administration Clopidogrel Bisulfate 75 mg 07/16/18 07:00 07/16/18 06:07 Plavix PO 75 mg DAILY LUZ Administration Hydrochlorothiazide 25 mg 07/15/18 10:00 07/16/18 09:10 Hctz PO 25 mg DAILY LUZ Administration Sodium Chloride 1,000 mls @ 60 mls/hr 07/15/18 23:55 07/15/18 21:57 IV 60 mls/hr .[id number] LUZ Administration Sodium Chloride 1,000 mls @ 15 mls/hr 07/16/18 07:00 07/15/18 22:01 IV Not Given .Q48H [facility] KVO Insulin Human Lispro 0 unit 07/15/18 11:00 07/16/18 06:57 Humalog Kwikpen (Bkc) SC Not Given ACHS [facility] Protocol Lisinopril 2.5 mg 07/16/18 10:00 07/16/18 06:07 Zestril PO 2.5 mg DAILY [facility] Administration Magnesium Hydroxide 30 ml 07/14/18 11:36 Milk Of Magnesia PO DAILY PRN Constipation Metoprolol Tartrate 100 mg 07/15/18 10:00 07/16/18 06:09 Lopressor (Beta Sheyla) PO 100 mg DAILY [facility] Administration Morphine Sulfate 1 - 2 mg 07/14/18 11:36 IV Q4H PRN PRN PAIN Nitroglycerin 0.4 mg 07/14/18 11:36 Nitrostat SUBLINGUAL Q5M PRN CHEST PAIN Ondansetron HCl 4 mg 07/14/18 11:36 Zofran IV Q8H PRN PRN NAUSEA Promethazine HCl 12.5 mg 07/14/18 11:36 Phenergan IV Q6H PRN PRN NAUSEA/VOMITING Sodium Chloride 5 - 30 ml 07/14/18 12:55 07/15/18 21:56 IV 10 ml UD PRN Administration SALINE FLUSH Venlafaxine HCl 150 mg 07/16/18 10:00 07/16/18 09:10 Effexor Xr PO 150 mg Q72H LUZ Administration Home Medications: Medications to take at Discharge Amiodarone HCl [Pacerone] 200 mg PO DAILY 07/14/18 Atorvastatin Calcium 40 mg PO QHS 07/14/18 Metoprol/Hydrochlorothiazide [Lopressor Hct 100-25 Tablet] 1 tab PO DAILY 07/14/18 Venlafaxine XR [Effexor Xr] 150 mg PO QODAY 07/14/18 Warfarin Sodium 1.5 mg PO MOTUWEFRSA 07/14/18 Warfarin Sodium 3 mg PO SUTH 07/14/18 Primary Care Physician: Freddy Jonas DO [STAFF PHYSICIAN] - Disposition: Acute care Hospital Minutes spent on discharge:: 35 Patient Condition:: Stable Medical Necessity - Tobacco Use Smoking Status: Never smoker Tobacco Use: Non-smoker Meaningful Use Info Meaningful Use Diagnoses (Choose all that apply): AMI - AMI Aspirin given w/in 24hrs of arrival?: Yes ASA at discharge?: Yes Statins at discharge?: Yes Raulito/ARB at discharge?: Yes Beta Sheyla at discharge?: Yes Done w/ Acute NC measure.: Yes Code Visit Inpatient E&M: 23339 Disch Hosp
--- NOTE | 2018-07-16 10:54 | PHA.DC.MR ---
Pharmacy Service has performed discharge medication reconciliation for this patient. No new medications were given at time of discharge, medications reviewed were prior home medications. The patient's discharge medication list was reviewed for discrepancies and discrepancies were resolved.
[2018-07-16 11:51] LABS: Bedside Glucose 105 mg/dL (70-110)
[2018-07-16 16:31] LABS: Bedside Glucose 137 mg/dL (70-110)
[2018-07-16] MEDS: 0.9% Normal Saline 1,000 ML 60 ML IV (17:29)
[2018-07-16] MEDS: 0.9% NaCl Peripheral Flush Adult/Peds IV (17:29)
--- NOTE | 2018-07-16 20:05 | NURSING ---
Report called to [facility] to STEVEN PATTON.
[2018-07-16] MEDS: Atorvastatin Calcium 20 MG Tablet 40 MG PO (21:22)
[2018-07-16 21:25] LABS: Bedside Glucose 114 mg/dL (70-110)
[2018-07-16] MEDS: Acetaminophen 325 MG Tablet 650 MG PO (22:33)
[2018-07-17 01:20] VITALS: BP 152/62; PULSE 60; RESP 18; TEMP 36.8; O2SAT 97
== END 2018-07-17 01:20 | disposition short-term general hospital (02) | DRG 282 ==
LOC: ED 11:05 → PCU 11:15
PROVIDERS: Internal Medicine Cardiovascular Disease; Admitting Provider Family Medicine; Emergency Provider Emergency Medicine; Family Provider Family Medicine; PCP Family Medicine; Visit Provider Family Medicine
DX: I21.4 Non-ST elevation (NSTEMI) myocardial infarction (principal); I10 Essential (primary) hypertension; F41.9 Anxiety disorder, unspecified; F32.9 Major depressive disorder, single episode, unspecified; E78.5 Hyperlipidemia, unspecified; Z95.5 Presence of coronary angioplasty implant and graft; I48.0 Paroxysmal atrial fibrillation; Z79.01 Long term (current) use of anticoagulants; I25.110 Atherosclerotic heart disease of native coronary artery with unstable angina pectoris; E11.65 Type 2 diabetes mellitus with hyperglycemia; Z23 Encounter for immunization; I44.7 Left bundle-branch block, unspecified; I77.819 Aortic ectasia, unspecified site
CPT/HCPCS: 36415; 71046; 80048; 80053; 80061; 81001; 82962; 83036; 83735; 84484; 85025; 85027; 85610; 85730; 93005; 93306; 93454; 93567; 97802; 97803; 99152; 99153; 99285; J7030; Q9957; Q9967; 90686; A4216; C1769; C1894; C8929